=== PATIENT | female | born 1965 | race Caucasian/White ===

== ENCOUNTER 2017-05-22 03:25 | Inpatient (IN) | payer MEDICAID ==
[~2017-05-22] VITALS: Ht 167.6 cm; Wt 72.3 kg
[~2017-05-22 03:25] MED LIST: CEPH500C5 PO; CYCL-1 PO; HYDR-565 PO; HYDR-569 PO; NAPR-1144 PO; NAPR-1166 PO
[2017-05-22] MEDS ORDERED: ondansetron/PF 4mg/2ml inj IV ONE (03:50)
[2017-05-22] MEDS ORDERED: normal saline 1000ML IV soln IVB ONE ×2 (03:50→04:50)
[2017-05-22] MEDS ORDERED: famotidine/PF 10 mg/ml inj IV ONE (03:50)
[2017-05-22] MEDS ORDERED: LORazepam 2 mg/ml vial IV ONE (04:10)
[2017-05-22 04:26] LABS: BASOPHILS % (AUTO) 0 % (0-1); EOSINOPHILS % (AUTO) 0.5 % (0-6); HEMATOCRIT 46.2 % (35.0-45.0); HEMOGLOBIN 15.8 g/dl (12.0-16.0); LYMPHOCYTES # (AUTO) 0.4 X10'3 (1.1-4.8); LYMPHOCYTES % (AUTO) 6.8 % (21-51); MEAN CORPUSCULAR HEMOGLOBIN 31.9 PG (27.0-31.0); MEAN CORPUSCULAR HGB CONC 34.1 % (33.0-36.5); MEAN CORPUSCULAR VOLUME 93.6 FL (78-98); MEAN PLATELET VOLUME 7.5 FL (7.4-10.4); MONOCYTES # (AUTO) 0.1 X10'3 (0-0.9); MONOCYTES % (AUTO) 2.6 % (2-12); NEUTROPHILS % (AUTO) 90.1 % (42-75); PLATELET COUNT 310 X10'3 (140-440); RED BLOOD COUNT 4.94 X10'6 (4.20-5.60); RED CELL DISTRIBUTION WIDTH 14.3 % (11.5-14.5); WHITE BLOOD COUNT 5.5 X10'3 (4.5-11.0)
[2017-05-22 04:39] LABS: ALANINE AMINOTRANSFERASE 87 U/L (12-78); ALBUMIN 3.6 G/DL (3.4-5.0); ALBUMIN/GLOBULIN RATIO 0.7 (1.1-1.5); ALKALINE PHOSPHATASE 147 IU/L (46-116); ANION GAP 20 (8-16); ASPARTATE AMINO TRANSFERASE 77 U/L (10-37); BILIRUBIN,TOTAL 0.6 MG/DL (0.1-1.0); BLOOD UREA NITROGEN 16 MG/DL (7-18); BUN/CREATININE RATIO 20.8 (6.6-38.0); CALCIUM 8.8 MG/DL (8.5-10.1); CHLORIDE 103 MMOL/L (99-107); CREATININE 0.77 MG/DL (0.40-0.90); ETHANOL 0.121 GM/DL (0.0-0.010); GLUCOSE 146 MG/DL (70-104); LIPASE 164 U/L (73-393); POTASSIUM 3.2 MMOL/L (3.5-5.1); SODIUM 143 MMOL/L (135-145); TOTAL CARBON DIOXIDE 20.3 MMOL/L (24-32); TOTAL PROTEIN 8.8 G/DL (6.4-8.2); eGFR 79 ML/MIN
[2017-05-22] MEDS ORDERED: acetaminophen 325mg tablet PO ONE (05:20)
[2017-05-22] MEDS ORDERED: normal saline 1000ml 1,000 ML IV ONE (07:00)
[2017-05-22] MEDS ORDERED: morphine 4 MG/ML inj SYRINge IV ONE (07:00)
[2017-05-22 07:16] LABS: URINE HCG NEGATIVE (NEG)
[2017-05-22 07:17] LABS: CLARITY,URINE CLEAR (Clear); COLOR,URINE YELLOW (Yellow); GLUCOSE, URINE NEGATIVE (Neg); KETONES,URINE >=80 mg/dl (Neg); LEUKOCYTE ESTERASE ,URINE NEGATIVE (Neg); NITRITES, URINE NEGATIVE (Neg); OCCULT BLOOD,URINE NEGATIVE (Neg); PH,URINE 5.5 (4.8-8.0); PROTEIN,URINE NEGATIVE (Neg)
[2017-05-22 07:18] LABS: UA COLLECTION TYPE CLN CATCH MIDSTREAM
[2017-05-22] MEDS ORDERED: morphine 4 MG/ML inj SYRINge IV PRN (08:55)
[2017-05-22] MEDS ORDERED: acetaminophen 325mg tablet PO PRN (08:55)
[2017-05-22] MEDS ORDERED: bisacodyl 10mg suppository rectal RC PRN (08:55)
[2017-05-22] MEDS ORDERED: magnesium 4gm in 100ml NS 100 ML IV PRN (08:55)
[2017-05-22] MEDS ORDERED: HYDROcodone/acetaminophen 5mg/325mg tablet PO PRN (08:55)
[2017-05-22] MEDS ORDERED: magnesium 2GM in 50ml NS 50 ML IV PRN (08:55)
[2017-05-22] MEDS ORDERED: metoclopramide 5 mg/ml inj IV PRN (08:55)
[2017-05-22] MEDS ORDERED: potassium Cl 20 mEq SR tablet PO PRN (08:55)
[2017-05-22] MEDS ORDERED: potassium Cl 40MEQ/NS 500ml 500 ML IV PRN ×2 (08:55)
[2017-05-22] MEDS ORDERED: mag hydrox/Alum hydrox/simeth 30ml oral suspension PO PRN (08:55)
[2017-05-22] MEDS ORDERED: magnesium hydroxide 30ml (MOM) UD suspension PO PRN (08:55)
[2017-05-22] MEDS ORDERED: normal saline 1000ml 1,000 ML IV SCH (08:55)
[2017-05-22] MEDS: thiamine inj. 100 MG in normal saline 100ml IV soln 100 ML IV ONE ×2 (09:55→12:15)
[2017-05-22] MEDS ORDERED: pantoprazole 40 MG vial IV ONE (09:55)
[2017-05-22] MEDS ORDERED: loperamide 2mg capsule PO ONE (09:55)
[2017-05-22] MEDS ORDERED: haloperidol 5mg tablet PO PRN ×2 (09:55)
[2017-05-22] MEDS ORDERED: cloNIDine 0.1 MG/24 HOUR patch (7 day patch) TD SCH (09:55)
[2017-05-22] MEDS ORDERED: LORazepam 2 mg/ml vial IV PRN ×3 (09:55)
[2017-05-22] MEDS ORDERED: haloperidol lactate 5mg/ml inj IM PRN ×3 (09:55)
[2017-05-22] MEDS: pantoprazole 40 MG vial IV SCH (10:30)
[2017-05-22] MEDS: potassium Cl 20 mEq SR tablet PO PRN ×2 (10:37→20:14)
[2017-05-22] MEDS: ondansetron/PF 4mg/2ml inj IV PRN (10:39)
[2017-05-22] MEDS: LORazepam 2 mg/ml vial IV PRN ×2 (10:45→21:57)
[2017-05-22 10:46] LABS: URINE AMPHETAMINE SCREEN POSITIVE (Neg); URINE BARBITUATE SCREEN NEGATIVE (Neg); URINE BENZODIAZEPINES SCREEN POSITIVE (Neg); URINE CANNABINOID SCREEN POSITIVE (Neg); URINE COCAINE SCREEN NEGATIVE (Neg); URINE METHADONE SCREEN NEGATIVE (Neg); URINE OPIATE SCREEN NEGATIVE (Neg); URINE PHENCYCLIDINE SCREEN NEGATIVE (Neg)
[2017-05-22 10:47] LABS: AMYLASE 61 U/L (25-115); CHOL/HDL RATIO 3.1 (0.00-4.99); CHOLESTEROL 210 MG/DL (0-200); HDL CHOLESTEROL 68 MG/DL (35-60); LDL CHOLESTEROL 114 MG/DL (50-100); TRIGLYCERIDES 105 MG/DL (20-135)
[2017-05-22 12:12] LABS: MAGNESIUM 1.4 MG/DL (1.5-2.4); PHOSPHORUS 3.2 MG/DL (2.3-4.5)
[2017-05-22] MEDS: nicotine 14mg patch - 24hr TD SCH (12:14)
[2017-05-22] MEDS: morphine 4 MG/ML inj SYRINge IV PRN (12:19)
[2017-05-22] MEDS: normal saline 1000ml 1,000 ML IV SCH ×3 (12:31→21:05)
[2017-05-22] MEDS: folic acid inj. 2 MG, thiamine inj. 100 MG, MVI, adult No.4 with vit. K 10 ML in dextro... IV SCH ×4 (13:22)
[2017-05-22 17:00] VITALS: BP 143/53
[2017-05-22 18:00] VITALS: BP 147/92
[2017-05-22] MEDS: HYDROcodone/acetaminophen 10/325mg tab PO PRN (18:06)
[2017-05-22] MEDS: magnesium Cl slow-release 64mg tablet PO PRN (20:14)
[2017-05-22] MEDS: docusate sod 100mg capsule PO SCH (20:16)
[2017-05-22] MEDS: heparin, porcine 5000 units/ml vial SQ SCH (20:16)
[2017-05-22] MEDS ORDERED: temazepam 15mg capsule PO PRN (21:00)
[2017-05-23] VITALS: BP 162/88
[2017-05-23] MEDS: normal saline 1000ml 1,000 ML IV SCH ×2 (03:02→21:00)
[2017-05-23 05:06] LABS: BASOPHILS % (AUTO) 0.3 % (0-1); EOSINOPHILS % (AUTO) 0.3 % (0-6); HEMATOCRIT 37.1 % (35.0-45.0); HEMOGLOBIN 12.6 g/dl (12.0-16.0); LYMPHOCYTES % (AUTO) 15.7 % (21-51); MEAN CORPUSCULAR HEMOGLOBIN 31.8 PG (27.0-31.0); MEAN CORPUSCULAR VOLUME 93.5 FL (78-98); MEAN PLATELET VOLUME 7.7 FL (7.4-10.4); MONOCYTES # (AUTO) 0.3 X10'3 (0-0.9); MONOCYTES % (AUTO) 5.2 % (2-12); NEUTROPHILS # (AUTO) 4.9 X10'3 (1.8-7.7); NEUTROPHILS % (AUTO) 78.5 % (42-75); PLATELET COUNT 220 X10'3 (140-440); RED BLOOD COUNT 3.96 X10'6 (4.20-5.60); RED CELL DISTRIBUTION WIDTH 14.6 % (11.5-14.5); WHITE BLOOD COUNT 6.3 X10'3 (4.5-11.0)
[2017-05-23 05:15] LABS: INR 1.1 INR; PROTHROMBIN TIME 11.2 SECONDS (9.0-12.0)
[2017-05-23 05:27] LABS: ALANINE AMINOTRANSFERASE 56 U/L (12-78); ALBUMIN 2.6 G/DL (3.4-5.0); ALBUMIN/GLOBULIN RATIO 0.7 (1.1-1.5); ALKALINE PHOSPHATASE 93 IU/L (46-116); AMYLASE 35 U/L (25-115); ANION GAP 9 (8-16); ASPARTATE AMINO TRANSFERASE 42 U/L (10-37); BILIRUBIN,TOTAL 0.3 MG/DL (0.1-1.0); BLOOD UREA NITROGEN 6 MG/DL (7-18); BUN/CREATININE RATIO 8.8 (6.6-38.0); CALCIUM 7.4 MG/DL (8.5-10.1); CHLORIDE 106 MMOL/L (99-107); CREATININE 0.68 MG/DL (0.40-0.90); GLUCOSE 107 MG/DL (70-104); LIPASE 56 U/L (73-393); MAGNESIUM 1.1 MG/DL (1.5-2.4); PHOSPHORUS 2.1 MG/DL (2.3-4.5); POTASSIUM 3.2 MMOL/L (3.5-5.1); SODIUM 139 MMOL/L (135-145); TOTAL CARBON DIOXIDE 24.5 MMOL/L (24-32); TOTAL PROTEIN 6.3 G/DL (6.4-8.2); eGFR > 90 ML/MIN
[2017-05-23] MEDS: magnesium Cl slow-release 64mg tablet PO PRN ×2 (05:57→21:06)
[2017-05-23] MEDS: potassium Cl 20 mEq SR tablet PO PRN ×3 (05:57→21:05)
[2017-05-23 06:54] VITALS: BP 123/71
[2017-05-23 07:16] LABS: HEP A AB, IGM Negative (Negative); HEP B CORE AB, IGM Negative (Negative); HEPATITIS C ANTIBODY >11.0 s/co ratio (0.0-0.9)
[2017-05-23] MEDS: morphine 4 MG/ML inj SYRINge IV PRN ×2 (07:58→20:15)
[2017-05-23] MEDS: heparin, porcine 5000 units/ml vial SQ SCH ×2 (07:58→19:54)
[2017-05-23] MEDS: nicotine 14mg patch - 24hr TD SCH ×2 (08:00→08:09)
[2017-05-23] MEDS: K and/or MAG REPLACEMENT MC SCH (08:00)
[2017-05-23] MEDS: folic acid inj. 2 MG, thiamine inj. 100 MG, MVI, adult No.4 with vit. K 10 ML in dextro... IV SCH ×4 (08:04)
[2017-05-23] MEDS: docusate sod 100mg capsule PO SCH ×2 (08:06→20:00)
[2017-05-23 11:00] VITALS: BP 104/61
[2017-05-23] MEDS: pantoprazole 40 MG vial IV SCH (11:03)
[2017-05-23] MEDS: LORazepam 2 mg/ml vial IV PRN ×2 (11:03→23:39)
[2017-05-23 19:00] VITALS: BP 126/81
[2017-05-23] MEDS: ondansetron/PF 4mg/2ml inj IV PRN (20:16)
[2017-05-24] VITALS: BP 114/67
[2017-05-24 05:04] LABS: BASOPHILS % (AUTO) 0.5 % (0-1); EOSINOPHILS # (AUTO) 0.1 X10'3 (0-0.9); EOSINOPHILS % (AUTO) 3.5 % (0-6); HEMATOCRIT 35.3 % (35.0-45.0); LYMPHOCYTES # (AUTO) 1.1 X10'3 (1.1-4.8); LYMPHOCYTES % (AUTO) 30.6 % (21-51); MEAN CORPUSCULAR HEMOGLOBIN 31.8 PG (27.0-31.0); MEAN CORPUSCULAR HGB CONC 33.9 % (33.0-36.5); MEAN CORPUSCULAR VOLUME 93.7 FL (78-98); MEAN PLATELET VOLUME 8.5 FL (7.4-10.4); MONOCYTES # (AUTO) 0.3 X10'3 (0-0.9); MONOCYTES % (AUTO) 8.1 % (2-12); NEUTROPHILS # (AUTO) 2.1 X10'3 (1.8-7.7); NEUTROPHILS % (AUTO) 57.3 % (42-75); PLATELET COUNT 214 X10'3 (140-440); RED BLOOD COUNT 3.76 X10'6 (4.20-5.60); RED CELL DISTRIBUTION WIDTH 14.5 % (11.5-14.5); WHITE BLOOD COUNT 3.7 X10'3 (4.5-11.0)
[2017-05-24 05:16] LABS: PROTHROMBIN TIME 10.6 SECONDS (9.0-12.0)
[2017-05-24 05:22] LABS: ALANINE AMINOTRANSFERASE 45 U/L (12-78); ALBUMIN 2.4 G/DL (3.4-5.0); ALBUMIN/GLOBULIN RATIO 0.7 (1.1-1.5); ALKALINE PHOSPHATASE 87 IU/L (46-116); AMYLASE 37 U/L (25-115); ANION GAP 7 (8-16); ASPARTATE AMINO TRANSFERASE 36 U/L (10-37); BILIRUBIN,TOTAL 0.3 MG/DL (0.1-1.0); BLOOD UREA NITROGEN 4 MG/DL (7-18); CALCIUM 7.7 MG/DL (8.5-10.1); CHLORIDE 107 MMOL/L (99-107); CREATININE 0.57 MG/DL (0.40-0.90); GLUCOSE 114 MG/DL (70-104); LIPASE 79 U/L (73-393); MAGNESIUM 1.3 MG/DL (1.5-2.4); PHOSPHORUS 2.4 MG/DL (2.3-4.5); POTASSIUM 3.2 MMOL/L (3.5-5.1); SODIUM 140 MMOL/L (135-145); TOTAL CARBON DIOXIDE 26.1 MMOL/L (24-32); eGFR > 90 ML/MIN
[2017-05-24 07:30] VITALS: BP 119/68
[2017-05-24] MEDS: nicotine 14mg patch - 24hr TD SCH (08:00)
[2017-05-24] MEDS: K and/or MAG REPLACEMENT MC SCH (08:00)
[2017-05-24] MEDS: docusate sod 100mg capsule PO SCH (08:00)
[2017-05-24] MEDS: pantoprazole 40 MG vial IV SCH ×2 (09:52→10:07)
[2017-05-24] MEDS: folic acid inj. 2 MG, thiamine inj. 100 MG, MVI, adult No.4 with vit. K 10 ML in dextro... IV SCH ×4 (09:53)
[2017-05-24] MEDS ORDERED: LORazepam 1 MG tablet PO PRN (09:55)
[2017-05-24] MEDS ORDERED: LORazepam 2 mg/ml vial IV PRN (09:55)
[2017-05-24] MEDS: heparin, porcine 5000 units/ml vial SQ SCH (10:08)
[2017-05-24 11:00] VITALS: BP 134/67
[2017-05-24] MEDS ORDERED: THI100T PO (12:01)
[2017-05-24] MEDS ORDERED: MULT-1179 PO (12:01)
[2017-05-24] MEDS ORDERED: FOLI1TAB16 PO (12:01)
[2017-05-24] MEDS: HYDROcodone/acetaminophen 10/325mg tab PO PRN (15:05)
[2017-05-25] MEDS ORDERED: multivitamins, therapeutics tablet PO SCH (08:00)
[2017-05-25] MEDS ORDERED: thiamine 100mg tablet PO SCH (08:00)
[2017-05-25] MEDS ORDERED: folic acid 1mg tablet PO SCH (08:00)
[2017-05-26] MEDS ORDERED: LORazepam 1 MG tablet PO PRN (09:55)
[2017-05-26] MEDS ORDERED: LORazepam 2 mg/ml vial IV PRN (09:55)
== END 2017-05-24 19:07 | disposition home or self-care (01) | DRG 775 ==
LOC: ER 03:26 → ED HOLD 08:55 → SUR 3N 16:17
PROVIDERS: ADMIT Nurse Practitioner Family; ATTEND Internal Medicine
DX: F10.129 Alcohol abuse with intoxication, unspecified (principal); E87.2 Acidosis; F15.10 Other stimulant abuse, uncomplicated; F17.210 Nicotine dependence, cigarettes, uncomplicated; F41.9 Anxiety disorder, unspecified; K20.9 Esophagitis, unspecified; E87.6 Hypokalemia; Y90.0 Blood alcohol level of less than 20 mg/100 ml; K31.84 Gastroparesis; B19.20 Unspecified viral hepatitis C without hepatic coma; G89.29 Other chronic pain; M54.9 Dorsalgia, unspecified; R74.0 Nonspecific elevation of levels of transaminase and lactic acid dehydrogenase [LDH]; R74.8 Abnormal levels of other serum enzymes; Z87.440 Personal history of urinary (tract) infections; Z79.899 Other long term (current) drug therapy
CPT/HCPCS: 36415; 70540; 70551; 74176; 76700; 80053; 80061; 80305; 80320; 81003; 81025; 82150; 82948; 83605; 83690; 83735; 84100; 84132; 85025; 85610; 86705; 86709; 86803; 87070; 96361; 96374; 96375; 97116; 97161; 99285; A4565; A6258; C9113; J1644; J2060; J2270; J2405; J3411; J3490; J7030; J7042; J7060

== ENCOUNTER 2017-11-04 12:57 | Emergency (ER) | payer MEDICAID ==
[~2017-11-04] VITALS: Ht 167.6 cm; Wt 72.0 kg
[~2017-11-04 12:57] MED LIST changes: -CEPH500C5 PO; +FOLI1TAB16 PO; +MULT-1179 PO; +THI100T PO
[2017-11-04 13:37] VITALS: BP 140/77
[2017-11-04] MEDS ORDERED: ketorolac trometh. 30mg/ml inj. IM ONE (14:50)
[2017-11-04] MEDS ORDERED: CYCL-1 PO (15:46)
== END 2017-11-04 16:02 | disposition home or self-care (01) ==
LOC: ER 12:58
DX: S20.219A Contusion of unspecified front wall of thorax, initial encounter (principal); G89.29 Other chronic pain; F17.200 Nicotine dependence, unspecified, uncomplicated; Z79.899 Other long term (current) drug therapy; Z56.0 Unemployment, unspecified; W17.89XA Other fall from one level to another, initial encounter; Y93.39 Activity, other involving climbing, rappelling and jumping off; Y92.89 Other specified places as the place of occurrence of the external cause; Y99.8 Other external cause status
CPT/HCPCS: 71045; 96372; 99284; J1885

== ENCOUNTER 2018-02-08 22:56 | Emergency (ER) | payer MEDICAID ==
[~2018-02-08] VITALS: Ht 167.6 cm; Wt 65.0 kg
[~2018-02-08 22:56] MED LIST changes: +HYDR-4353 PO; +HYDR-4383 PO; -HYDR-565 PO; -HYDR-569 PO
[2018-02-08 23:13] VITALS: BP 158/100
[2018-02-09] MEDS ORDERED: acetaminophen 325mg tablet PO ONE (03:50)
[2018-02-09] MEDS ORDERED: ONDA4TAB6 PO ×2 (03:51→03:52)
[2018-02-09] MEDS ORDERED: HYDR-3965 PO (03:52)
== END 2018-02-09 05:54 | disposition home or self-care (01) ==
LOC: ER 22:56
DX: S43.101A Unspecified dislocation of right acromioclavicular joint, initial encounter (principal); S46.091A Other injury of muscle(s) and tendon(s) of the rotator cuff of right shoulder, initial encounter; B19.20 Unspecified viral hepatitis C without hepatic coma; G89.29 Other chronic pain; E11.9 Type 2 diabetes mellitus without complications; F17.200 Nicotine dependence, unspecified, uncomplicated; Z98.890 Other specified postprocedural states; Z56.0 Unemployment, unspecified; Z79.899 Other long term (current) drug therapy; W10.8XXA Fall (on) (from) other stairs and steps, initial encounter; Y93.89 Activity, other specified; Y92.89 Other specified places as the place of occurrence of the external cause; Y99.8 Other external cause status
CPT/HCPCS: 29105; 73030; 99283

== ENCOUNTER 2018-02-15 19:10 | Emergency (ER) | payer MEDICAID ==
[~2018-02-15] VITALS: Ht 167.6 cm; Wt 69.9 kg
[~2018-02-15 19:10] MED LIST changes: +HYDR-3965 PO; +ONDA4TAB6 PO
[2018-02-15 19:32] VITALS: BP 165/95
[2018-02-16] MEDS ORDERED: ketorolac trometh. 30mg/ml inj. IM ONE (00:20)
[2018-02-16] MEDS ORDERED: IBUP-1985 PO (00:21)
== END 2018-02-16 00:32 | disposition home or self-care (01) ==
LOC: ER 19:11
DX: S43.101A Unspecified dislocation of right acromioclavicular joint, initial encounter (principal); G89.29 Other chronic pain; F17.200 Nicotine dependence, unspecified, uncomplicated; Z56.0 Unemployment, unspecified; Z98.890 Other specified postprocedural states; Z79.899 Other long term (current) drug therapy; W10.9XXA Fall (on) (from) unspecified stairs and steps, initial encounter; Y93.89 Activity, other specified; Y92.89 Other specified places as the place of occurrence of the external cause; Y99.9 Unspecified external cause status
CPT/HCPCS: 96372; 99283; J1885

== ENCOUNTER 2018-04-26 05:11 | Emergency (ER) | payer MEDICAID ==
[~2018-04-26] VITALS: Ht 167.6 cm; Wt 58.0 kg
[~2018-04-26 05:11] MED LIST changes: -HYDR-3965 PO; +IBUP-1985 PO
[2018-04-26] MEDS ORDERED: BENZ-16 PO (07:49)
[2018-04-26] MEDS ORDERED: SULF5DRO EACHEYE (07:49)
[2018-04-26 08:11] VITALS: BP 134/48
== END 2018-04-26 08:13 | disposition home or self-care (01) ==
LOC: ER 05:14
DX: J06.9 Acute upper respiratory infection, unspecified (principal); H10.9 Unspecified conjunctivitis; J02.9 Acute pharyngitis, unspecified; F17.200 Nicotine dependence, unspecified, uncomplicated; Z56.0 Unemployment, unspecified; Z72.89 Other problems related to lifestyle
CPT/HCPCS: 99283

== ENCOUNTER 2018-05-10 23:53 | Emergency (ER) | payer MEDICAID ==
[~2018-05-10] VITALS: Ht 167.6 cm; Wt 63.6 kg
[~2018-05-10 23:53] MED LIST changes: +BENZ-16 PO; +SULF5DRO EACHEYE
[2018-05-11] VITALS: BP 146/118
[2018-05-11] MEDS ORDERED: FLUT16SP2 BOTHNARES (00:18)
[2018-05-11] MEDS ORDERED: AZIT250T PO (00:21)
== END 2018-05-11 00:30 | disposition home or self-care (01) ==
LOC: ER 23:53
DX: J02.9 Acute pharyngitis, unspecified (principal); G89.29 Other chronic pain; F17.200 Nicotine dependence, unspecified, uncomplicated; Z98.890 Other specified postprocedural states; Z79.899 Other long term (current) drug therapy; Z56.0 Unemployment, unspecified
CPT/HCPCS: 99283

== ENCOUNTER 2018-05-27 21:00 | Emergency (ER) | payer MEDICAID ==
[~2018-05-27 21:00] MED LIST changes: +FLUT16SP2 BOTHNARES
[2018-05-28] MEDS ORDERED: PERM60CR19 TP (06:18)
== END 2018-05-27 21:45 | disposition left against medical advice (07) ==
LOC: ER 21:01
DX: R51 Headache (principal); Z53.21 Procedure and treatment not carried out due to patient leaving prior to being seen by health care provider

== ENCOUNTER 2018-05-28 04:41 | Emergency (ER) | payer MEDICAID ==
[~2018-05-28] VITALS: Ht 167.6 cm; Wt 60.4 kg
[2018-05-28 05:24] VITALS: BP 151/84
[2018-05-28] MEDS ORDERED: PERM60CR19 TP (06:18)
[2018-05-28] MEDS ORDERED: ibuprofen tablet 400 MG TABLET PO ONE (06:20)
== END 2018-05-28 06:45 | disposition home or self-care (01) ==
LOC: ER 04:42
DX: B85.0 Pediculosis due to Pediculus humanus capitis (principal); R21 Rash and other nonspecific skin eruption; F17.200 Nicotine dependence, unspecified, uncomplicated; G89.29 Other chronic pain; E11.9 Type 2 diabetes mellitus without complications; B19.20 Unspecified viral hepatitis C without hepatic coma; Z56.0 Unemployment, unspecified; Z98.890 Other specified postprocedural states; Z79.899 Other long term (current) drug therapy
CPT/HCPCS: 99282

== ENCOUNTER 2018-07-11 21:22 | Emergency (ER) | payer MEDICAID ==
[~2018-07-11 21:22] MED LIST changes: -BENZ-16 PO
== END 2018-07-11 21:55 | disposition left against medical advice (07) ==
LOC: ER 21:22
DX: R51 Headache (principal); Z53.21 Procedure and treatment not carried out due to patient leaving prior to being seen by health care provider

== ENCOUNTER 2018-07-17 12:16 | Emergency (ER) | payer MEDICAID ==
[~2018-07-17] VITALS: Ht 167.6 cm; Wt 60.9 kg
[2018-07-17 12:18] VITALS: BP 123/93
--- NOTE | 2018-07-17 12:46 | NUR ---
PT WAS CALLED BACK TO ER X3, PT WAS NOT IN LOBBY. NOTIFIED DR CLAUDIO, ATTEMPTED TO CALL PT BUT THERE WAS NO LISTED PHONE# OTHER THAN EMERGENCY CONTACT #. DR CLAUDIO NOTIFIED. NO FURTHER ACTION REQUIRED PER DR CLAUDIO
== END 2018-07-17 12:48 | disposition left against medical advice (07) ==
LOC: ER 12:17
DX: F41.9 Anxiety disorder, unspecified (principal); Z53.21 Procedure and treatment not carried out due to patient leaving prior to being seen by health care provider; Z79.899 Other long term (current) drug therapy

== ENCOUNTER 2018-09-09 18:15 | Inpatient (IN) | payer MEDICAID ==
[~2018-09-09] VITALS: Ht 167.6 cm; Wt 61.8 kg
[2018-09-09] MEDS ORDERED: ESOMEPRAZOLE 40 MG VIAL IV STA (20:18)
[2018-09-09] MEDS ORDERED: famotidine/PF 10 mg/ml inj IV ONE (20:20)
[2018-09-09] MEDS ORDERED: normal saline 1000ML IV soln IVB ONE (20:20)
[2018-09-09] MEDS ORDERED: ondansetron/PF 4mg/2ml inj IV ONE (20:20)
[2018-09-09 20:30] LABS: BASOPHILS # (AUTO) 0.1 X10'3 (0-0.2); BASOPHILS % (AUTO) 1.4 % (0-1); EOSINOPHILS # (AUTO) 0.2 X10'3 (0-0.9); EOSINOPHILS % (AUTO) 2.8 % (0-6); HEMATOCRIT 45.8 % (35.0-45.0); HEMOGLOBIN 15.6 g/dl (12.0-16.0); LYMPHOCYTES % (AUTO) 30.6 % (21-51); MEAN CORPUSCULAR HEMOGLOBIN 34.3 PG (27.0-31.0); MEAN CORPUSCULAR VOLUME 101.1 FL (78-98); MEAN PLATELET VOLUME 8.2 FL (7.4-10.4); MONOCYTES # (AUTO) 1.2 X10'3 (0-0.9); MONOCYTES % (AUTO) 18.6 % (2-12); NEUTROPHILS # (AUTO) 3.1 X10'3 (1.8-7.7); NEUTROPHILS % (AUTO) 46.6 % (42-75); PLATELET COUNT 432 X10'3 (140-440); RED BLOOD COUNT 4.53 X10'6 (4.20-5.60); RED CELL DISTRIBUTION WIDTH 15.3 % (11.5-14.5); WHITE BLOOD COUNT 6.6 X10'3 (4.5-11.0)
[2018-09-09 20:40] LABS: ALBUMIN 3.5 G/DL (3.4-5.0); ALBUMIN/GLOBULIN RATIO 0.6 (1.1-1.5); ALKALINE PHOSPHATASE 222 IU/L (46-116); ANION GAP 9 (8-16); ASPARTATE AMINO TRANSFERASE 913 U/L (10-37); BILIRUBIN,TOTAL 0.9 MG/DL (0.1-1.0); BLOOD UREA NITROGEN 10 MG/DL (7-18); BUN/CREATININE RATIO 11.8 (6.6-38.0); CALCIUM 8.8 MG/DL (8.5-10.1); CHLORIDE 99 MMOL/L (99-107); CREATININE 0.85 MG/DL (0.40-0.90); SODIUM 137 MMOL/L (135-145); TOTAL CARBON DIOXIDE 29.1 MMOL/L (24-32); TOTAL PROTEIN 8.9 G/DL (6.4-8.2); eGFR 70 ML/MIN
[2018-09-09 20:44] LABS: GLUCOSE 170 MG/DL (70-104)
[2018-09-09] MEDS ORDERED: magnesium 2GM in 50ml NS 50 ML IV ONE (20:45)
[2018-09-09] MEDS ORDERED: potassium Cl 20 mEq SR tablet PO ONE (20:45)
[2018-09-09 20:46] LABS: POTASSIUM 2.5 MMOL/L (3.5-5.1)
[2018-09-09] MEDS ORDERED: proCHLORperazine 10 MG/2 ml inj IV ONE (20:55)
[2018-09-09] MEDS ORDERED: thiamine 100mg/ml 2ml inj. IV ONE ×2 (20:55→23:55)
[2018-09-09] MEDS ORDERED: sucralfate 1gm/10ml UD suspension PO ONE (20:55)
[2018-09-09] MEDS ORDERED: LORazepam 2 mg/ml vial IV ONE (20:55)
[2018-09-09] MEDS: potassium Cl 10 mEq/100mL bag IV SCH ×2 (21:05→22:13)
[2018-09-09 21:40] LABS: TOTAL CELLS COUNTED 100
[2018-09-09 21:44] LABS: ALANINE AMINOTRANSFERASE 1018 U/L (12-78)
[2018-09-09 21:49] LABS: PLATELET ESTIMATE NORMAL
[2018-09-09] MEDS ORDERED: normal saline 1000ml 1,000 ML IV ONE (22:00)
[2018-09-09] MEDS ORDERED: iohexol 300mg/ml 100ml inj. ONE (22:59)
[2018-09-09 23:18] LABS: LIPASE 334 U/L (73-393)
[2018-09-09] MEDS ORDERED: magnesium 2GM in 50ml NS 50 ML IV PRN (23:35)
[2018-09-09] MEDS ORDERED: magnesium hydroxide 30ml (MOM) UD suspension PO PRN (23:35)
[2018-09-09] MEDS ORDERED: haloperidol lactate 5mg/ml inj IM PRN (23:35)
[2018-09-09] MEDS ORDERED: thiamine inj. 100 MG in normal saline 100ml IV soln 100 ML IV ONE (23:35)
[2018-09-09] MEDS ORDERED: haloperidol 5mg tablet PO PRN (23:35)
[2018-09-09] MEDS ORDERED: acetaminophen 325mg tablet PO PRN (23:35)
[2018-09-09] MEDS ORDERED: potassium Cl 20 mEq SR tablet PO PRN ×2 (23:35)
[2018-09-09] MEDS ORDERED: magnesium 4gm in 100ml NS 100 ML IV PRN (23:35)
[2018-09-09] MEDS ORDERED: potassium CL 10mEq/100ml bag 100 ML IV PRN (23:35)
[2018-09-09 23:47] LABS: ETHANOL 0.224 GM/DL (0.0-0.010)
[2018-09-09] MEDS: potassium Cl 20mEq in NS 1,000 ML IV SCH (23:56)
[2018-09-10 02:30] VITALS: BP 125/69
[2018-09-10 02:49] LABS: URINE AMPHETAMINE SCREEN NEGATIVE (Neg); URINE BARBITUATE SCREEN NEGATIVE (Neg); URINE BENZODIAZEPINES SCREEN NEGATIVE (Neg); URINE CANNABINOID SCREEN NEGATIVE (Neg); URINE COCAINE SCREEN NEGATIVE (Neg); URINE METHADONE SCREEN NEGATIVE (Neg); URINE OPIATE SCREEN NEGATIVE (Neg); URINE PHENCYCLIDINE SCREEN NEGATIVE (Neg)
[2018-09-10] MEDS: LORazepam 2 mg/ml vial IV PRN (03:04)
[2018-09-10] MEDS: potassium CL 10mEq/100ml bag 100 ML IV PRN ×3 (03:05→06:23)
[2018-09-10 05:52] LABS: BASOPHILS # (AUTO) 0.1 X10'3 (0-0.2); BASOPHILS % (AUTO) 1.3 % (0-1); EOSINOPHILS # (AUTO) 0.2 X10'3 (0-0.9); EOSINOPHILS % (AUTO) 3.6 % (0-6); HEMATOCRIT 37.6 % (35.0-45.0); HEMOGLOBIN 12.6 g/dl (12.0-16.0); LYMPHOCYTES # (AUTO) 1.2 X10'3 (1.1-4.8); LYMPHOCYTES % (AUTO) 21.6 % (21-51); MEAN CORPUSCULAR HEMOGLOBIN 34.1 PG (27.0-31.0); MEAN CORPUSCULAR HGB CONC 33.6 g/dL (33.0-36.5); MEAN CORPUSCULAR VOLUME 101.6 FL (78-98); MONOCYTES % (AUTO) 17.9 % (2-12); NEUTROPHILS # (AUTO) 3.1 X10'3 (1.8-7.7); NEUTROPHILS % (AUTO) 55.6 % (42-75); PLATELET COUNT 320 X10'3 (140-440); RED CELL DISTRIBUTION WIDTH 15.2 % (11.5-14.5); WHITE BLOOD COUNT 5.5 X10'3 (4.5-11.0)
--- NOTE | 2018-09-10 06:20 | NUR ---
Problems reprioritized. Patient report given, questions answered & plan of care reviewed with Clarisse MACHUCA.
--- NOTE | 2018-09-10 06:41 | NUR ---
Patient in room [facility]. I have received report from BRIGETTE Kathleen and had the opportunity to ask questions and assume patient care.
[2018-09-10 07:00] VITALS: BP 116/70
[2018-09-10] MEDS: thiamine inj. 100 MG, folic acid inj. 2 MG in normal saline 100ml IV soln 100.0 ML IV SCH (07:26)
[2018-09-10 07:31] LABS: PLATELET ESTIMATE NORMAL; TOTAL CELLS COUNTED 100
[2018-09-10] MEDS: ESOMEPRAZOLE 40 MG VIAL IV SCH ×2 (07:36→20:18)
[2018-09-10] MEDS: MVI, adult No.4 with vit. K 10 ML in dextrose 5% water 500ml 500 ML IV SCH ×2 (07:41)
[2018-09-10] MEDS: K and/or MAG REPLACEMENT MC SCH (07:41)
[2018-09-10] MEDS ORDERED: enoxaparin 40mg/0.4ml syringe SQ SCH (08:00)
[2018-09-10] MEDS: potassium Cl 20mEq in NS 1,000 ML IV SCH ×3 (10:36→22:10)
[2018-09-10 11:00] VITALS: BP 128/81
[2018-09-10 11:06] LABS: HIV ANTIBODY 1&2 RAPID NON-REACTIVE (Neg)
[2018-09-10 11:32] LABS: ALANINE AMINOTRANSFERASE 708 U/L (12-78); ALBUMIN 2.4 G/DL (3.4-5.0); ALBUMIN/GLOBULIN RATIO 0.6 (1.1-1.5); ALKALINE PHOSPHATASE 187 IU/L (46-116); ANION GAP 5 (8-16); ASPARTATE AMINO TRANSFERASE 662 U/L (10-37); BILIRUBIN,TOTAL 1.8 MG/DL (0.1-1.0); BLOOD UREA NITROGEN 7 MG/DL (7-18); BUN/CREATININE RATIO 11.5 (6.6-38.0); CALCIUM 7.2 MG/DL (8.5-10.1); CHLORIDE 110 MMOL/L (99-107); CREATININE 0.61 MG/DL (0.40-0.90); MAGNESIUM 1.7 MG/DL (1.5-2.4); PHOSPHORUS 2.6 MG/DL (2.3-4.5); POTASSIUM 3.8 MMOL/L (3.5-5.1); SODIUM 142 MMOL/L (135-145); TOTAL CARBON DIOXIDE 27.2 MMOL/L (24-32); TOTAL PROTEIN 6.2 G/DL (6.4-8.2); eGFR > 90 ML/MIN
--- NOTE | 2018-09-10 11:46 | NUR ---
Malnutrition consult: Per documented wt history pt has lost 36 lbs since May 2017, this is non-severe wt loss of 22% in 15 months. Patient's weight has overall remained stable throughout this year. Pt admitted with acute hepatitis likely secondary to alcohol, somnolent and intoxicated in ED with Etoh level 0.224, currently receiving banana bag. Per H&P pt s/p CT of abdomen and pelvis which demonstrated a moderately distended esophageal lumen which may be caused by achalasia, pt currently NPO. Pt documented with no decrease in muscle strength and no edema. Pt currently lacks a minimum of two criteria for malnutrition. Will continue to follow. Addendum: 09/10/18 at [address] Amended: Links added.
[2018-09-10 11:52] LABS: GLUCOSE 134 MG/DL (70-104)
[2018-09-10] MEDS: ondansetron/PF 4mg/2ml inj IV PRN (14:01)
[2018-09-10] MEDS ORDERED: metoclopramide 5 mg/ml inj IV PRN (14:55)
[2018-09-10] MEDS ORDERED: BARIUM SULFATE 340 ML SUSP.RECON***PROCEDURE AREA ONLY**DONT ENTER PO ONE (15:00)
--- NOTE | 2018-09-10 18:05 | NUR ---
Problems reprioritized. Patient report given, questions answered & plan of care reviewed with BRIGETTE Shirley.
--- NOTE | 2018-09-10 18:42 | NUR ---
Patient in room [facility] 359. I have received report from Clarisse MACHUCA and had the opportunity to ask questions and assume patient care.
[2018-09-10 19:00] VITALS: BP 104/58
[2018-09-11] VITALS (10 sets, daily range): BP systolic 111–137; BP diastolic 63–91
[2018-09-11 06:26] LABS: BASOPHILS # (AUTO) 0.1 X10'3 (0-0.2); BASOPHILS % (AUTO) 1.3 % (0-1); EOSINOPHILS # (AUTO) 0.2 X10'3 (0-0.9); HEMATOCRIT 36.4 % (35.0-45.0); HEMOGLOBIN 12.4 g/dl (12.0-16.0); LYMPHOCYTES # (AUTO) 1.2 X10'3 (1.1-4.8); MEAN CORPUSCULAR HEMOGLOBIN 34.5 PG (27.0-31.0); MEAN CORPUSCULAR VOLUME 101.5 FL (78-98); MEAN PLATELET VOLUME 8.6 FL (7.4-10.4); MONOCYTES # (AUTO) 0.8 X10'3 (0-0.9); MONOCYTES % (AUTO) 14.5 % (2-12); NEUTROPHILS # (AUTO) 3.1 X10'3 (1.8-7.7); NEUTROPHILS % (AUTO) 58.2 % (42-75); PLATELET COUNT 334 X10'3 (140-440); RED BLOOD COUNT 3.59 X10'6 (4.20-5.60); RED CELL DISTRIBUTION WIDTH 15.2 % (11.5-14.5); WHITE BLOOD COUNT 5.4 X10'3 (4.5-11.0)
[2018-09-11 06:33] LABS: ALANINE AMINOTRANSFERASE 521 U/L (12-78); ALBUMIN 2.2 G/DL (3.4-5.0); ALBUMIN/GLOBULIN RATIO 0.6 (1.1-1.5); ALKALINE PHOSPHATASE 190 IU/L (46-116); ANION GAP 7 (8-16); ASPARTATE AMINO TRANSFERASE 417 U/L (10-37); BILIRUBIN,TOTAL 2.8 MG/DL (0.1-1.0); BLOOD UREA NITROGEN 7 MG/DL (7-18); CALCIUM 7.5 MG/DL (8.5-10.1); CHLORIDE 110 MMOL/L (99-107); CREATININE 0.54 MG/DL (0.40-0.90); MAGNESIUM 1.4 MG/DL (1.5-2.4); PHOSPHORUS 2.2 MG/DL (2.3-4.5); POTASSIUM 3.6 MMOL/L (3.5-5.1); SODIUM 142 MMOL/L (135-145); TOTAL PROTEIN 5.8 G/DL (6.4-8.2); eGFR > 90 ML/MIN
--- NOTE | 2018-09-11 06:33 | NUR ---
Problems reprioritized. Patient report given, questions answered & plan of care reviewed with Lexi MACHUCA.
[2018-09-11 06:37] LABS: GLUCOSE 87 MG/DL (70-104)
--- NOTE | 2018-09-11 07:30 | NUR ---
[facility] CALLED AND STATED THEY WOULD TAKE PT AT 1600. A FEW MINUTES LATER THEY CAME TO THE FLOOR AND SAID THEY WERE ABLE TO GET THE PT IN EARLY. NO MEDS WERE PASSED FOR THIS PT YET. PT GOING TO [facility]
[2018-09-11] MEDS: ESOMEPRAZOLE 40 MG VIAL IV SCH ×2 (08:00→19:08)
[2018-09-11] MEDS: thiamine inj. 100 MG, folic acid inj. 2 MG in normal saline 100ml IV soln 100.0 ML IV SCH (08:00)
[2018-09-11] MEDS: K and/or MAG REPLACEMENT MC SCH (08:00)
[2018-09-11] MEDS ORDERED: fentaNYL/PF 50MCG/1 ML 2ML syringe ONE (08:02)
[2018-09-11] MEDS ORDERED: MIDAZolam 5mg/5ml vial ONE ×2 (08:03→09:20)
[2018-09-11] MEDS ORDERED: LIDOcaine Viscous 15ml cup ONE (08:03)
[2018-09-11] MEDS ORDERED: diatrozoate meglu/diatrozoate sod (37% iodine) 120ML oral solution ONE (09:00)
[2018-09-11] MEDS ORDERED: potassium phosphate inj 30 MMOL in normal saline 500ml IV soln 490 ML IV ONE (09:30)
--- NOTE | 2018-09-11 10:30 | NUR ---
NURSE FROM GI CALLED AND STATED PT HAD ONE MORE PROCEDURE AND THEN WOULD BE BACK ON THE FLOOR.
--- NOTE | 2018-09-11 12:20 | NUR ---
PT CAME TO FLOOR AND NURSE STATES TO START DIET ORDER
--- NOTE | 2018-09-11 13:06 | NUR ---
CT CALLED, NEED A STAT CT. SENT FORM WAITING FOR CT TO COME
[2018-09-11] MEDS ORDERED: iohexol 300mg/ml 100ml inj. ONE (13:08)
[2018-09-11] MEDS: MVI, adult No.4 with vit. K 10 ML in dextrose 5% water 500ml 500 ML IV SCH ×2 (14:14)
--- NOTE | 2018-09-11 14:14 | NUR ---
Wound consult: Per [facility] notes pt with abscess to left ischium red and swollen with no open areas. No further nutrition intervention warranted at this time. Will continue to follow Addendum: 09/11/18 at [address] Amended: Links added.
--- NOTE | 2018-09-11 14:20 | NUR ---
PT IS BACK FROM [facility]. UNABLE TO PERFORM SOME OF HER TASKS SHE HAD BEEN OFF E FLOOR FOR 6 HOURS
[2018-09-11] MEDS: LORazepam 2 mg/ml vial IV PRN (14:24)
[2018-09-11] MEDS: potassium Cl 20mEq in NS 1,000 ML IV SCH (15:42)
--- NOTE | 2018-09-11 17:01 | NUR ---
Patient in room [facility] 359. I have received report from AGUSTIN MCAHUCA and had the opportunity to ask questions and assume patient care.
[2018-09-11] MEDS: dextrose 5%-normal saline 1,000 ML IV SCH (17:35)
--- NOTE | 2018-09-11 18:26 | NUR ---
GAVE REPORT TO PRUDENCE RN
[2018-09-11] MEDS: piperacillin/tazo 3.375gm/50ml 50 ML IV SCH (19:08)
[2018-09-11] MEDS ORDERED: acetaminophen 650mg rectal suppository RC PRN (20:25)
--- NOTE | 2018-09-11 22:22 | NUR ---
Patient did not shower due to multiple procedures performed during day time. She returned to the unit later in the afternoon. Addendum: 09/11/18 at 2223 by Fern Alfonso RN Amended: Links added.
--- NOTE | 2018-09-11 22:23 | NUR ---
Patient did not shower during day time due to multiple procedures. Bed bath offered. Addendum: 09/11/18 at 2225 by Fern Alfonso RN Amended: Links added.
[2018-09-11] MEDS ORDERED: LORazepam 1 MG tablet PO PRN (23:35)
[2018-09-11] MEDS ORDERED: LORazepam 2 mg/ml vial IV PRN (23:35)
[2018-09-12] VITALS: BP 124/60
[2018-09-12] MEDS: piperacillin/tazo 3.375gm/50ml 50 ML IV SCH ×3 (00:44→17:20)
[2018-09-12] MEDS: dextrose 5%-normal saline 1,000 ML IV SCH ×3 (03:20→21:05)
[2018-09-12 06:18] LABS: BASOPHILS % (AUTO) 0.3 % (0-1); EOSINOPHILS # (AUTO) 0.2 X10'3 (0-0.9); EOSINOPHILS % (AUTO) 2.9 % (0-6); HEMATOCRIT 39.2 % (35.0-45.0); HEMOGLOBIN 13.2 g/dl (12.0-16.0); LYMPHOCYTES % (AUTO) 14.9 % (21-51); MEAN CORPUSCULAR HGB CONC 33.7 g/dL (33.0-36.5); MEAN CORPUSCULAR VOLUME 100.9 FL (78-98); MEAN PLATELET VOLUME 8.5 FL (7.4-10.4); MONOCYTES # (AUTO) 0.9 X10'3 (0-0.9); MONOCYTES % (AUTO) 12.4 % (2-12); NEUTROPHILS # (AUTO) 4.8 X10'3 (1.8-7.7); NEUTROPHILS % (AUTO) 69.5 % (42-75); PLATELET COUNT 310 X10'3 (140-440); RED BLOOD COUNT 3.88 X10'6 (4.20-5.60); WHITE BLOOD COUNT 6.9 X10'3 (4.5-11.0)
--- NOTE | 2018-09-12 06:31 | NUR ---
Problems reprioritized. Patient report given, questions answered & plan of care reviewed with Teodora MACHUCA.
[2018-09-12 06:43] LABS: ALANINE AMINOTRANSFERASE 451 U/L (12-78); ALBUMIN 2.1 G/DL (3.4-5.0); ALBUMIN/GLOBULIN RATIO 0.5 (1.1-1.5); ALKALINE PHOSPHATASE 202 IU/L (46-116); ANION GAP 7 (8-16); ASPARTATE AMINO TRANSFERASE 341 U/L (10-37); BILIRUBIN,TOTAL 4.1 MG/DL (0.1-1.0); BLOOD UREA NITROGEN 4 MG/DL (7-18); BUN/CREATININE RATIO 7.3 (6.6-38.0); CALCIUM 7.6 MG/DL (8.5-10.1); CHLORIDE 102 MMOL/L (99-107); CREATININE 0.55 MG/DL (0.40-0.90); MAGNESIUM 2.1 MG/DL (1.5-2.4); PHOSPHORUS 2.4 MG/DL (2.3-4.5); SODIUM 138 MMOL/L (135-145); TOTAL CARBON DIOXIDE 29.4 MMOL/L (24-32); eGFR > 90 ML/MIN
[2018-09-12 06:44] LABS: GLUCOSE 105 MG/DL (70-104)
[2018-09-12 07:00] VITALS: BP 106/55
[2018-09-12] MEDS: K and/or MAG REPLACEMENT MC SCH (07:26)
[2018-09-12] MEDS: ESOMEPRAZOLE 40 MG VIAL IV SCH ×2 (07:39→19:46)
[2018-09-12] MEDS: thiamine inj. 100 MG, folic acid inj. 2 MG in normal saline 100ml IV soln 100.0 ML IV SCH (07:39)
[2018-09-12] MEDS: MVI, adult No.4 with vit. K 10 ML in dextrose 5% water 500ml 500 ML IV SCH ×2 (08:55)
[2018-09-12] MEDS: potassium CL 10mEq/100ml bag 100 ML IV PRN ×6 (09:19→22:10)
[2018-09-12] MEDS: morphine 2 MG/ML inj. syringe IV PRN ×4 (10:46→23:51)
[2018-09-12 11:00] VITALS: BP 128/74
--- NOTE | 2018-09-12 13:33 | NUR ---
TPN consult: Consult from MD indicates TPN possible pending on clinical course. 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 Pt s/p endoscopic clip and dilation of esophagus to 12 mm which may be good enough for full liquids however esophagus may narrow back down again d/t tear and clip per MD notes. Pt may also be able to tolerate full liquids if esophageal stent is placed however EN may be challenging or non-existent per MD notes. Patient previously on regular diet with documented 75% x 1 meal however has been NPO since that one meal (x 2 days). PO diet has just been advance to ice chips however pt has not had any yet per RN. Discussed consult with RN who states pt does not have a PICC or central line. RN states MD did not discuss time frame of which pt may need IV nutrition as it is unclear if this is a necessary route for nutrition at this point. Informed RN that if it will be short term (no greater than 3 days), PPN would be appropriate, although will be unable to meet nutrient needs, however TPN would be appropriate if pt to receive IV nutrition for longer time. Recommendations below for IF pt to receive IV nutrition, informed RN that recommendations can be found in RD note however will not be d/w pharmacy at this time as MD decision still pending on if pt to receive IV nutrition. Will f/u tomorrow. Recommendations: 1) IF short term and to receive PPN: continuous 2:1 Clinimix E 4.25/5 with goal rate of 75 mL/hr to run for 24 hours with separate 120 mL 20% intralipids with goal rate of 10 mL/hr to run for 12 hours; Will not meet 100% of estimated nutrient needs however appropriate for short term use 2) IF long-term and to receive TPN: continuous 2:1 Clinimix E 5/15 with goal rate of 70 mL to run for 24 hours with separate 240 mL 20% intralipids with goal rate of 20 mL/hr to run for 12 hours; Will meet 100% of patient's estimated nutrient needs and is appropriate for long-term use 3) Diet advancement as medically indicated if safe PO 4) Wt per rx Addendum: 09/12/18 at [address] Amended: Links added.
[2018-09-12] MEDS ORDERED: Trace element-5 inj. 1 ML in AA 4.25%/calcium/lytes/D5W 2,000 ML IV SCH (17:00)
[2018-09-12] MEDS: fat emulsion IV bag 250 ML IV SCH (17:52)
--- NOTE | 2018-09-12 18:25 | NUR ---
Patient in room [facility] 359. I have received report from Teodora MACHUCA and had the opportunity to ask questions and assume patient care.
--- NOTE | 2018-09-12 18:35 | NUR ---
Problems reprioritized. Patient report given, questions answered & plan of care reviewed with MORRO MACHUCA.
[2018-09-12 20:00] VITALS: BP 118/72
[2018-09-12] MEDS ORDERED: dextrose ORAL solution 15 GM/59 ML bottle PO PRN (22:35)
[2018-09-12] MEDS ORDERED: glucagon, human recombinant 1mg kit SUBCUT PRN (22:35)
[2018-09-12] MEDS ORDERED: dextrose 50%-water 50ml dispensing syringe IV PRN ×2 (22:35)
[2018-09-13] VITALS: BP 110/51
--- NOTE | 2018-09-13 | NUR ---
pt c/o pain and medicated for it with morphine. pt tolerated well. turning side to side and now using bedside commode.
[2018-09-13] MEDS: piperacillin/tazo 3.375gm/50ml 50 ML IV SCH ×4 (00:44→23:47)
--- NOTE | 2018-09-13 06:08 | NUR ---
Problems reprioritized. Patient report given, questions answered & plan of care reviewed with Teoodra MACHUCA.
[2018-09-13 06:44] LABS: ANION GAP 7 (8-16); BASOPHILS # (AUTO) 0.1 X10'3 (0-0.2); BASOPHILS % (AUTO) 1.2 % (0-1); BLOOD UREA NITROGEN 3 MG/DL (7-18); BUN/CREATININE RATIO 5.9 (6.6-38.0); CALCIUM 7.7 MG/DL (8.5-10.1); CHLORIDE 102 MMOL/L (99-107); CREATININE 0.51 MG/DL (0.40-0.90); EOSINOPHILS # (AUTO) 0.2 X10'3 (0-0.9); EOSINOPHILS % (AUTO) 3.8 % (0-6); GLUCOSE 130 MG/DL (70-104); HEMOGLOBIN 13.1 g/dl (12.0-16.0); LYMPHOCYTES # (AUTO) 1.3 X10'3 (1.1-4.8); LYMPHOCYTES % (AUTO) 19.9 % (21-51); MEAN CORPUSCULAR HEMOGLOBIN 34.2 PG (27.0-31.0); MEAN CORPUSCULAR HGB CONC 34.4 g/dL (33.0-36.5); MEAN CORPUSCULAR VOLUME 99.4 FL (78-98); MEAN PLATELET VOLUME 9.2 FL (7.4-10.4); MONOCYTES # (AUTO) 0.6 X10'3 (0-0.9); MONOCYTES % (AUTO) 9.7 % (2-12); NEUTROPHILS # (AUTO) 4.3 X10'3 (1.8-7.7); NEUTROPHILS % (AUTO) 65.4 % (42-75); PLATELET COUNT 295 X10'3 (140-440); RED BLOOD COUNT 3.83 X10'6 (4.20-5.60); RED CELL DISTRIBUTION WIDTH 15.4 % (11.5-14.5); SODIUM 137 MMOL/L (135-145); TOTAL CARBON DIOXIDE 27.7 MMOL/L (24-32); WHITE BLOOD COUNT 6.6 X10'3 (4.5-11.0); eGFR > 90 ML/MIN
[2018-09-13 06:45] LABS: ALANINE AMINOTRANSFERASE 339 U/L (12-78); ALBUMIN 2.1 G/DL (3.4-5.0); ALBUMIN/GLOBULIN RATIO 0.5 (1.1-1.5); ALKALINE PHOSPHATASE 189 IU/L (46-116); ASPARTATE AMINO TRANSFERASE 232 U/L (10-37); MAGNESIUM 1.2 MG/DL (1.5-2.4); PHOSPHORUS 3.3 MG/DL (2.3-4.5)
[2018-09-13 07:00] VITALS: BP 120/60
[2018-09-13] MEDS: thiamine inj. 100 MG, folic acid inj. 2 MG in normal saline 100ml IV soln 100.0 ML IV SCH (07:06)
[2018-09-13] MEDS ORDERED: potassium CL 10mEq/100ml bag 100 ML IV PRN (07:35)
[2018-09-13] MEDS: K and/or MAG REPLACEMENT MC SCH (07:57)
[2018-09-13] MEDS: ESOMEPRAZOLE 40 MG VIAL IV SCH ×2 (08:01→19:33)
[2018-09-13] MEDS: morphine 2 MG/ML inj. syringe IV PRN ×4 (08:12→23:47)
[2018-09-13] MEDS: MVI, adult No.4 with vit. K 10 ML in dextrose 5% water 500ml 500 ML IV SCH ×2 (08:29)
[2018-09-13] MEDS: potassium Cl 40MEQ/NS 500ml 500 ML IV SCH ×2 (08:29→16:32)
[2018-09-13 11:00] VITALS: BP 105/51
--- NOTE | 2018-09-13 14:09 | NUR ---
reassessment: Pt PPN was started awaiting central line placement Friday. Pt is able to swallow ice chips and having BM's x6 past 24 hours noted. K 3.0, Mg 1.2 and receiving electrolyte replacement. Per RN GI MD may take pt back for further stricture eval or possibly transfer to different facility. NONA d/w RN if pt to remain NPO r/t stricture may benefit from PEG given functioning gut; also in order to maintain gut integrity and prevent bacterial translocation. Pt was tolerating first meal 75% prior to PPN. Receiving banana bag for etoh hx. Will continue to monitor for further GI results and MD recs. No evidence of mediastinitis per surgeon note. Recommendations: 1) PPN per MD: continuous 2:1 Clinimix E 4.25/5 with goal rate of 75 mL/hr to run for 24 hours with separate 120 mL 20% intralipids with goal rate of 10 mL/hr to run for 12 hours; Will not meet 100% of estimated nutrient needs however appropriate for short term use 2) IF NPO at least 7-10 days and to receive central line: TPN continuous 2:1 Clinimix E 5/15 with goal rate of 70 mL to run for 24 hours with separate 240 mL 20%intralipids with goal rate of 20 mL/hr to run for 12 hours; Will meet 100%of patient's estimated nutrient needs and is appropriate for intermediate designer use 3) Diet advancement to low-residue as medically indicated per MD 4) If unable to take PO; consider PEG for long-term nutrition needs given functional gut 5) Continue banana bag given hx heavy Etoh abuse 6) Prealbumin Q /, daily wts Addendum: 09/13/18 at [address] Amended: Links added.
[2018-09-13] MEDS ORDERED: diatr meglu/diatrizoate 30ml oral sol.-(3 dose) bottle PO ONE (15:20)
[2018-09-13] MEDS ORDERED: Trace element-5 inj. 1 ML in AA 4.25%/calcium/lytes/D5W 2,000 ML IV SCH (17:00)
[2018-09-13] MEDS: fat emulsion IV bag 250 ML IV SCH (17:20)
--- NOTE | 2018-09-13 18:20 | NUR ---
Problems reprioritized. Patient report given, questions answered & plan of care reviewed with WILFRED MACHUCA. Addendum: 09/13/18 at 1823 by Magi Leos RN DISREGARD NOTE, KRUNAL MACHUCA
--- NOTE | 2018-09-13 18:25 | NUR ---
Problems reprioritized. Patient report given, questions answered & plan of care reviewed with BRIGID MACHUCA.
--- NOTE | 2018-09-13 18:54 | NUR ---
Patient in room [facility] 346. I have received report from Teodora Markham and had the opportunity to ask questions and assume patient care. Addendum: 09/13/18 at 1856 by Bonny Noonan RN Amended: Links added.
[2018-09-13 20:00] VITALS: BP 154/68
[2018-09-13] MEDS: insulin glargine (Lantus) pen - multi-dose SQ SCH (21:00)
--- NOTE | 2018-09-13 21:20 | NUR ---
PT INC OF URINE IN THE BED HAD COVERED IT UP DID NOT TELL THE RN SHE WAS WET. SKIN CARE DONE THEN HAD HELP COME IN TO DO A COMPLETE BED CHANGE. PT SAID SHE COULD GET UP WHEN WE DID THE BED CHANGE. UNHOOKED HER FROM IV'S COVERED ARMS TOOK HER TO THE SHOWER AND HAIR WASHED. PT CAME BACK AND WENT INTO CLEAN BED HYGIENE TEACHING DONE WITH HER AND NOTED SORE RIGHT BUTTOX RED AND OPENED NO DRAINAGE FROM IT. TEACHING DONE REGARDING SEPSIS FROM BEING INC AND LAYING IN IT AND NOT TELLING STAFF AND RESULTS OF IT CAN BE. TEACHING IMPORTANCE OF USING BEDPAN CALLING US OR BETTER YET BEDSIDE COMMODE TO VOID DONE. PT TEACHING DONE ON USING THE CALL LIGHT TO LET US KNOW SHE HAS VOIDED OR INC OF URINE. STRESSED IMPORTANCE OF SKIN REMAINING DRY. BOYFRIEND WENT IN THE SHOWER AND AWARE HE NEEDED TO CHANGE WHAT HE HAD ON. THEY ARE INSISTENT HE STAY AT THE BEDSIDE. HOSPITAL RULES WENT OVER WITH BOTH PT AND BOYFRIEND AND COMPLEMENTED ON BEING PLEASANT AND HELPFUL WITH STAFF.
[2018-09-13] MEDS ORDERED: LORazepam 1 MG tablet PO PRN (23:35)
--- NOTE | 2018-09-13 23:45 | NUR ---
pt c/o pain and medicated with morphine for it.
[2018-09-14] VITALS: BP 110/56
--- NOTE | 2018-09-14 00:05 | NUR ---
pt inc of small amt of urine after using the commode. told Rn skin care done and pad changed.
--- NOTE | 2018-09-14 01:05 | NUR ---
resting on her right side without s&s of distress at this time.
[2018-09-14] MEDS: magnesium 2GM in 50ml NS 50 ML IV PRN (01:32)
--- NOTE | 2018-09-14 01:35 | NUR ---
pt awoke inc of urine in the bed. skin care with complete lien changes done.
[2018-09-14] MEDS: dextrose 5%-normal saline 1,000 ML IV SCH ×2 (01:54→13:44)
[2018-09-14] MEDS: magnesium 4gm in 100ml NS 100 ML IV PRN (02:38)
--- NOTE | 2018-09-14 02:45 | NUR ---
second mag replacement infusing and blood sugar done.
--- NOTE | 2018-09-14 04:31 | NUR ---
pt inc of urine threw dry flow end of bed without telling the staff. more teaching gone over with the pt.
[2018-09-14 05:01] LABS: BASOPHILS # (AUTO) 0.1 X10'3 (0-0.2); EOSINOPHILS # (AUTO) 0.3 X10'3 (0-0.9); EOSINOPHILS % (AUTO) 5.4 % (0-6); HEMATOCRIT 39.3 % (35.0-45.0); HEMOGLOBIN 13.3 g/dl (12.0-16.0); LYMPHOCYTES # (AUTO) 1.3 X10'3 (1.1-4.8); LYMPHOCYTES % (AUTO) 22.3 % (21-51); MEAN CORPUSCULAR HEMOGLOBIN 34.1 PG (27.0-31.0); MEAN CORPUSCULAR HGB CONC 33.9 g/dL (33.0-36.5); MEAN CORPUSCULAR VOLUME 100.6 FL (78-98); MEAN PLATELET VOLUME 9.1 FL (7.4-10.4); MONOCYTES # (AUTO) 0.7 X10'3 (0-0.9); MONOCYTES % (AUTO) 11.2 % (2-12); NEUTROPHILS # (AUTO) 3.5 X10'3 (1.8-7.7); NEUTROPHILS % (AUTO) 60.1 % (42-75); PLATELET COUNT 302 X10'3 (140-440); RED CELL DISTRIBUTION WIDTH 14.8 % (11.5-14.5); WHITE BLOOD COUNT 5.9 X10'3 (4.5-11.0)
[2018-09-14 05:07] LABS: ANION GAP 7 (8-16); BILIRUBIN,TOTAL 2.4 MG/DL (0.1-1.0); BLOOD UREA NITROGEN 5 MG/DL (7-18); BUN/CREATININE RATIO 9.4 (6.6-38.0); CALCIUM 8.2 MG/DL (8.5-10.1); CHLORIDE 102 MMOL/L (99-107); CREATININE 0.53 MG/DL (0.40-0.90); MAGNESIUM 3.4 MG/DL (1.5-2.4); PHOSPHORUS 4.1 MG/DL (2.3-4.5); POTASSIUM 3.7 MMOL/L (3.5-5.1); SODIUM 135 MMOL/L (135-145); TOTAL CARBON DIOXIDE 25.9 MMOL/L (24-32); TOTAL PROTEIN 6.5 G/DL (6.4-8.2); eGFR > 90 ML/MIN
[2018-09-14 05:08] LABS: ALANINE AMINOTRANSFERASE 380 U/L (12-78); ALBUMIN 2.2 G/DL (3.4-5.0); ALBUMIN/GLOBULIN RATIO 0.5 (1.1-1.5); ALKALINE PHOSPHATASE 199 IU/L (46-116); ASPARTATE AMINO TRANSFERASE 342 U/L (10-37)
[2018-09-14 05:09] LABS: GLUCOSE 164 MG/DL (70-104)
--- NOTE | 2018-09-14 06:17 | NUR ---
Patient in room [facility] 346. I have received report from BRIGETTE Draper and had the opportunity to ask questions and assume patient care.
--- NOTE | 2018-09-14 06:53 | NUR ---
Problems reprioritized. Patient report given, questions answered & plan of care reviewed with DIONISIO MACHUCA. Addendum: 09/14/18 at 0653 by Bonny Noonan RN Amended: Links added.
[2018-09-14 07:27] VITALS: BP 103/60
[2018-09-14] MEDS: ESOMEPRAZOLE 40 MG VIAL IV SCH ×2 (07:49→20:42)
[2018-09-14] MEDS: piperacillin/tazo 3.375gm/50ml 50 ML IV SCH ×3 (07:49→16:14)
[2018-09-14] MEDS: thiamine inj. 100 MG, folic acid inj. 2 MG in normal saline 100ml IV soln 100.0 ML IV SCH (07:49)
[2018-09-14] MEDS: MVI, adult No.4 with vit. K 10 ML in dextrose 5% water 500ml 500 ML IV SCH ×2 (07:49)
[2018-09-14] MEDS: morphine 2 MG/ML inj. syringe IV PRN ×4 (07:50→20:42)
[2018-09-14] MEDS: K and/or MAG REPLACEMENT MC SCH (08:00)
[2018-09-14 11:45] VITALS: BP 115/72
--- NOTE | 2018-09-14 15:10 | NUR ---
F/u: Pt PPN weaned w/ TPN starting today s/p PICC placement. Dex/NS running while transitioning. Oral contrast seen outside of esophagus to keep strict NPO per MD note. RD d/w RN if prolonged NPO pt would benefit from PEG for optimal nutrition needs given functioning gut w/ BMs each day. Will continue to monitor. reassessment: Pt PPN was started awaiting central line placement Friday. Pt is able to swallow ice chips and having BM's x6 past 24 hours noted. K 3.0, Mg 1.2 and receiving electrolyte replacement. Per RN GI MD may take pt back for further stricture eval or possibly transfer to different facility. NONA d/w RN if pt to remain NPO r/t stricture may benefit from PEG given functioning gut; also in order to maintain gut integrity and prevent bacterial translocation. Pt was tolerating first meal 75% prior to PPN. Receiving banana bag for etoh hx. Will continue to monitor for further GI results and MD recs. No evidence of mediastinitis per surgeon note. Recommendations: 1) TPN continuous 2:1 Clinimix E 5/15 with goal rate of 70 mL to run for 24 hours with separate 240 mL 20%intralipids with goal rate of 20 mL/hr to run for 12hours; Will meet 100% of patient's estimated nutrient needs and is appropriate for termite exterminator use 2) Diet advancement to low-residue as medically indicated per MD 3) If unable to take PO; consider PEG for long-term nutrition needs given functional gut 4) Continue banana bag given hx heavy Etoh abuse 5) Prealbumin Q /, daily wts Addendum: 09/14/18 at [address] Amended: Links added.
[2018-09-14] MEDS: Trace element-5 inj. 1 ML in AA 5%/cal/electrolyte-TPN/D15W 2,000 ML IV SCH (15:50)
[2018-09-14] MEDS: FAT EMULSION IV SCH (15:50)
[2018-09-14] MEDS ORDERED: fat emulsion IV bag 120 ML IV SCH (17:00)
[2018-09-14 18:00] VITALS: BP 113/68
--- NOTE | 2018-09-14 18:40 | NUR ---
Patient in room [facility] 346. I have received report from Nicolle MACHUCA and had the opportunity to ask questions and assume patient care. Patient is finishing dinner, family at bedside, will continue to monitor.
--- NOTE | 2018-09-14 18:40 | NUR ---
Problems reprioritized. Patient report given, questions answered & plan of care reviewed with BRIGETTE Kathleen.
[2018-09-14] MEDS: lactobacillus rhamnosus 10,000 MMU CELLS/CAPSULE PO SCH (19:54)
[2018-09-14] MEDS: insulin regular, human vial - multi-dose SQ SCH (22:06)
[2018-09-14] MEDS: insulin glargine (Lantus) pen - multi-dose SQ SCH (22:08)
[2018-09-15] VITALS: BP 107/57
[2018-09-15] MEDS: piperacillin/tazo 3.375gm/50ml 50 ML IV SCH ×4 (00:31→23:28)
[2018-09-15] MEDS: insulin regular, human vial - multi-dose SQ SCH ×4 (03:22→20:29)
[2018-09-15 03:26] LABS: BASOPHILS # (AUTO) 0.1 X10'3 (0-0.2); BASOPHILS % (AUTO) 1.1 % (0-1); EOSINOPHILS # (AUTO) 0.4 X10'3 (0-0.9); EOSINOPHILS % (AUTO) 5.6 % (0-6); HEMATOCRIT 38.9 % (35.0-45.0); HEMOGLOBIN 13.5 g/dl (12.0-16.0); LYMPHOCYTES # (AUTO) 1.5 X10'3 (1.1-4.8); LYMPHOCYTES % (AUTO) 21.4 % (21-51); MEAN CORPUSCULAR HEMOGLOBIN 34.5 PG (27.0-31.0); MEAN CORPUSCULAR HGB CONC 34.6 g/dL (33.0-36.5); MEAN CORPUSCULAR VOLUME 99.7 FL (78-98); MEAN PLATELET VOLUME 8.6 FL (7.4-10.4); MONOCYTES # (AUTO) 0.8 X10'3 (0-0.9); NEUTROPHILS # (AUTO) 4.2 X10'3 (1.8-7.7); NEUTROPHILS % (AUTO) 59.9 % (42-75); PLATELET COUNT 322 X10'3 (140-440); RED CELL DISTRIBUTION WIDTH 14.9 % (11.5-14.5)
[2018-09-15] MEDS: morphine 2 MG/ML inj. syringe IV PRN ×5 (03:28→22:07)
[2018-09-15 03:40] LABS: ALANINE AMINOTRANSFERASE 395 U/L (12-78); ALBUMIN 2.3 G/DL (3.4-5.0); ALBUMIN/GLOBULIN RATIO 0.5 (1.1-1.5); ALKALINE PHOSPHATASE 225 IU/L (46-116); ANION GAP 5 (8-16); ASPARTATE AMINO TRANSFERASE 384 U/L (10-37); BILIRUBIN,TOTAL 1.6 MG/DL (0.1-1.0); BLOOD UREA NITROGEN 8 MG/DL (7-18); BUN/CREATININE RATIO 14.8 (6.6-38.0); CALCIUM 8.3 MG/DL (8.5-10.1); CHLORIDE 102 MMOL/L (99-107); CREATININE 0.54 MG/DL (0.40-0.90); MAGNESIUM 1.4 MG/DL (1.5-2.4); POTASSIUM 3.6 MMOL/L (3.5-5.1); SODIUM 135 MMOL/L (135-145); TOTAL CARBON DIOXIDE 27.7 MMOL/L (24-32); TOTAL PROTEIN 6.8 G/DL (6.4-8.2); eGFR > 90 ML/MIN
[2018-09-15 03:43] LABS: GLUCOSE 161 MG/DL (70-104)
--- NOTE | 2018-09-15 06:41 | NUR ---
Problems reprioritized. Patient report given, questions answered & plan of care reviewed with Nicolle MACHUCA.
[2018-09-15 08:00] VITALS: BP 115/71
[2018-09-15] MEDS: K and/or MAG REPLACEMENT MC SCH (08:00)
[2018-09-15] MEDS: ESOMEPRAZOLE 40 MG VIAL IV SCH ×2 (08:06→20:31)
[2018-09-15] MEDS: lactobacillus rhamnosus 10,000 MMU CELLS/CAPSULE PO SCH ×2 (08:09→20:31)
[2018-09-15] MEDS: magnesium 2GM in 50ml NS 50 ML IV PRN (08:09)
--- NOTE | 2018-09-15 10:31 | NUR ---
Reassessment: TPN now running at goal rate and pt tolerating with no s/s refeeding syndrome. Pt +1.4 kg since admit, not of concern at this time. Per MD notes pt to be treated with IV abx and NPO for a few days then trial clear liquid diet. Recommend nutrition support until pt able to tolerate regular foods PO with at least 65% PO intake. Otherwise pt may benefit from PEG if unsafe PO intake and requiring half-way nutrition support. LBM 09/14. Will continue to follow. F/u: Pt PPN weaned w/ TPN starting today s/p PICC placement. Dex/NS running while transitioning. Oral contrast seen outside of esophagus to keep strict NPO per MD note. RD d/w RN if prolonged NPO pt would benefit from PEG for optimal nutrition needs given functioning gut w/ BMs each day. Will continue to monitor. reassessment: Pt PPN was started awaiting central line placement Friday. Pt is able to swallow ice chips and having BM's x6 past 24 hours noted. K 3.0, Mg 1.2 and receiving electrolyte replacement. Per RN GI MD may take pt back for further stricture eval or possibly transfer to different facility. RD d/w RN if pt to remain NPO r/t stricture may benefit from PEG given functioning gut; also in order to maintain gut integrity and prevent bacterial translocation. Pt was tolerating first meal 75% prior to PPN. Receiving banana bag for etoh hx. Will continue to monitor for further GI results and MD recs. No evidence of mediastinitis per surgeon note. Recommendations: 1) TPN continuous 2:1 Clinimix E 5/15 with goal rate of 70 mL to run for 24 hours with separate 240 mL 20%intralipids with goal rate of 20 mL/hr to run for 12hours; In total will provide: 1920 mL total volume/day, 84 g protein, 252 g dextrose (dextrose load 3.125 mg/kg/min), 48 g lipids, 1336.8 non-protein kcals, and 1672.8 total kcals. Will meet 100% of patient's estimated nutrient needs and is appropriate for termite exterminator use 2) Diet advancement to low-residue as medically indicated per MD 3) If unable to take PO; consider PEG for long-term nutrition needs given functional gut 4) Continue banana bag given hx heavy Etoh abuse 5) Prealbumin Q M/Th, daily wts Addendum: 09/15/18 at [address] Amended: Links added.
--- NOTE | 2018-09-15 11:54 | NUR ---
I have reviewed and agree with all interventions, assessments performed and documented by BRIGETTE Garcia.
[2018-09-15 12:00] VITALS: BP 120/63
--- NOTE | 2018-09-15 12:06 | NUR ---
Patient in room [facility] 346. I have received report from BRIGETTE Kathleen and had the opportunity to ask questions and assume patient care.
[2018-09-15] MEDS: dextrose 5%-normal saline 1,000 ML IV SCH (13:04)
[2018-09-15] MEDS: FAT EMULSION IV SCH (15:14)
[2018-09-15] MEDS: Trace element-5 inj. 1 ML in AA 5%/cal/electrolyte-TPN/D15W 2,000 ML IV SCH (15:15)
[2018-09-15 18:00] VITALS: BP 109/55
--- NOTE | 2018-09-15 18:00 | NUR ---
Problems reprioritized. Patient report given, questions answered & plan of care reviewed with Sea.
--- NOTE | 2018-09-15 18:01 | NUR ---
Patient in room [facility] 346. I have received report from Abimbola, Jason and had the opportunity to ask questions and assume patient care.
[2018-09-15] MEDS: magnesium 4gm in 100ml NS 100 ML IV PRN (18:03)
[2018-09-15 20:00] VITALS: BP 109/55
[2018-09-15] MEDS: insulin glargine (Lantus) pen - multi-dose SQ SCH (21:39)
[2018-09-16] VITALS (7 sets, daily range): BP systolic 87–119; BP diastolic 50–67
[2018-09-16] MEDS: ondansetron/PF 4mg/2ml inj IV PRN (02:06)
[2018-09-16] MEDS: mag hydrox/Alum hydrox/simeth 30ml oral suspension PO PRN (02:15)
[2018-09-16] MEDS: insulin regular, human vial - multi-dose SQ SCH ×4 (02:21→20:23)
[2018-09-16] MEDS: LORazepam 2 mg/ml vial IV PRN (02:24)
--- NOTE | 2018-09-16 02:41 | NUR ---
Patient woke up suddenly with a "back cramp" that continued through to her chest. Directly after that she started dry heaving, then complaining of chest heaviness and jaw pain. An EKG was done and vitals were taken. Everything showed normal. notified.
[2018-09-16 05:00] LABS: BASOPHILS # (AUTO) 0.1 X10'3 (0-0.2); BASOPHILS % (AUTO) 0.9 % (0-1); EOSINOPHILS # (AUTO) 0.3 X10'3 (0-0.9); EOSINOPHILS % (AUTO) 4.2 % (0-6); HEMATOCRIT 39.4 % (35.0-45.0); HEMOGLOBIN 13.4 g/dl (12.0-16.0); LYMPHOCYTES # (AUTO) 1.2 X10'3 (1.1-4.8); LYMPHOCYTES % (AUTO) 15.2 % (21-51); MEAN CORPUSCULAR HEMOGLOBIN 34.1 PG (27.0-31.0); MEAN CORPUSCULAR HGB CONC 33.9 g/dL (33.0-36.5); MEAN CORPUSCULAR VOLUME 100.6 FL (78-98); MEAN PLATELET VOLUME 8.9 FL (7.4-10.4); MONOCYTES % (AUTO) 12.6 % (2-12); NEUTROPHILS # (AUTO) 5.3 X10'3 (1.8-7.7); NEUTROPHILS % (AUTO) 67.1 % (42-75); PLATELET COUNT 342 X10'3 (140-440); RED BLOOD COUNT 3.92 X10'6 (4.20-5.60); RED CELL DISTRIBUTION WIDTH 15.3 % (11.5-14.5)
[2018-09-16 05:10] LABS: POTASSIUM 3.2 MMOL/L (3.5-5.1); SODIUM 136 MMOL/L (135-145)
[2018-09-16 05:37] LABS: ALANINE AMINOTRANSFERASE 483 U/L (12-78); ALBUMIN 2.4 G/DL (3.4-5.0); ALBUMIN/GLOBULIN RATIO 0.5 (1.1-1.5); ALKALINE PHOSPHATASE 220 IU/L (46-116); ANION GAP 8 (8-16); ASPARTATE AMINO TRANSFERASE 417 U/L (10-37); BILIRUBIN,TOTAL 1.3 MG/DL (0.1-1.0); BLOOD UREA NITROGEN 11 MG/DL (7-18); BUN/CREATININE RATIO 20.8 (6.6-38.0); CALCIUM 8.2 MG/DL (8.5-10.1); CHLORIDE 101 MMOL/L (99-107); CREATININE 0.53 MG/DL (0.40-0.90); GLUCOSE 135 MG/DL (70-104); MAGNESIUM 1.8 MG/DL (1.5-2.4); TOTAL CARBON DIOXIDE 26.8 MMOL/L (24-32); TOTAL PROTEIN 6.9 G/DL (6.4-8.2); eGFR > 90 ML/MIN
--- NOTE | 2018-09-16 06:07 | NUR ---
Problems reprioritized. Patient report given, questions answered & plan of care reviewed with BRIGETTE Contreras.
[2018-09-16] MEDS: K and/or MAG REPLACEMENT MC SCH (08:00)
[2018-09-16] MEDS: piperacillin/tazo 3.375gm/50ml 50 ML IV SCH ×2 (09:06→16:29)
[2018-09-16] MEDS: morphine 2 MG/ML inj. syringe IV PRN ×3 (09:07→21:26)
[2018-09-16] MEDS: ESOMEPRAZOLE 40 MG VIAL IV SCH ×2 (09:07→20:19)
[2018-09-16] MEDS: lactobacillus rhamnosus 10,000 MMU CELLS/CAPSULE PO SCH ×2 (09:07→20:19)
[2018-09-16] MEDS: potassium CL 10mEq/100ml bag 100 ML IV PRN ×4 (10:44→16:29)
[2018-09-16 12:06] LABS: CLARITY,URINE CLOUDY (Clear); COLOR,URINE YELLOW (Yellow); GLUCOSE, URINE 100 mg/dl (Neg); KETONES,URINE NEGATIVE (Neg); LEUKOCYTE ESTERASE ,URINE NEGATIVE (Neg); NITRITES, URINE NEGATIVE (Neg); OCCULT BLOOD,URINE NEGATIVE (Neg); PROTEIN,URINE NEGATIVE (Neg); UROBILINOGEN,URINE >=8.0 E.U/dL (0.2-1.0)
[2018-09-16 12:10] LABS: UA COLLECTION TYPE NON-SPECIFIED
[2018-09-16 12:11] LABS: SQUAMOUS EPITHELIAL CELL,UR MANY /LPF (FEW)
[2018-09-16 12:12] LABS: BACTERIA,URINE FEW /HPF (Neg); RBC,URINE 0-2 /HPF (0-2); WBC,URINE 0-4 /HPF (0-4)
[2018-09-16 12:20] LABS: HEMOGLOBIN A1C 6.1 % (4.5-6.2)
--- NOTE | 2018-09-16 13:38 | NUR ---
PAGER ID: [phone] MESSAGE: [id number] Chyna Moreno Blood pressures have been a little low. Last one automatic . Retaken manually . Diane [id number]
[2018-09-16] MEDS ORDERED: normal saline 1000ml 1,000 ML IV SCH (13:45)
--- NOTE | 2018-09-16 14:00 | NUR ---
MD Silverman returned page. See bolus orders.
[2018-09-16] MEDS: FAT EMULSION IV SCH (14:28)
[2018-09-16] MEDS: Trace element-5 inj. 1 ML in AA 5%/cal/electrolyte-TPN/D15W 2,000 ML IV SCH (14:28)
[2018-09-16] MEDS: normal saline 1000ml 1,000 ML IV SCH (16:55)
--- NOTE | 2018-09-16 18:00 | NUR ---
Patient in room [facility] 346. I have received report from BRIGETTE Contreras and had the opportunity to ask questions and assume patient care.
[2018-09-16] MEDS: insulin glargine (Lantus) pen - multi-dose SQ SCH (21:19)
[2018-09-17] MEDS: piperacillin/tazo 3.375gm/50ml 50 ML IV SCH ×3 (00:26→16:15)
[2018-09-17 00:48] VITALS: BP 100/52
[2018-09-17] MEDS: insulin regular, human vial - multi-dose SQ SCH ×4 (02:18→20:52)
[2018-09-17 02:39] LABS: BASOPHILS # (AUTO) 0.1 X10'3 (0-0.2); BASOPHILS % (AUTO) 1.4 % (0-1); EOSINOPHILS # (AUTO) 0.3 X10'3 (0-0.9); EOSINOPHILS % (AUTO) 4.7 % (0-6); HEMOGLOBIN 12.1 g/dl (12.0-16.0); LYMPHOCYTES # (AUTO) 1.6 X10'3 (1.1-4.8); LYMPHOCYTES % (AUTO) 25.1 % (21-51); MEAN CORPUSCULAR HEMOGLOBIN 33.9 PG (27.0-31.0); MEAN CORPUSCULAR HGB CONC 33.7 g/dL (33.0-36.5); MEAN CORPUSCULAR VOLUME 100.6 FL (78-98); MEAN PLATELET VOLUME 8.8 FL (7.4-10.4); MONOCYTES # (AUTO) 1.1 X10'3 (0-0.9); MONOCYTES % (AUTO) 16.5 % (2-12); NEUTROPHILS # (AUTO) 3.4 X10'3 (1.8-7.7); NEUTROPHILS % (AUTO) 52.3 % (42-75); PLATELET COUNT 313 X10'3 (140-440); RED BLOOD COUNT 3.58 X10'6 (4.20-5.60); RED CELL DISTRIBUTION WIDTH 15.2 % (11.5-14.5); WHITE BLOOD COUNT 6.6 X10'3 (4.5-11.0)
[2018-09-17 02:48] LABS: ALANINE AMINOTRANSFERASE 432 U/L (12-78); ALBUMIN 2.2 G/DL (3.4-5.0); ALBUMIN/GLOBULIN RATIO 0.5 (1.1-1.5); ALKALINE PHOSPHATASE 197 IU/L (46-116); ANION GAP 7 (8-16); ASPARTATE AMINO TRANSFERASE 315 U/L (10-37); BLOOD UREA NITROGEN 10 MG/DL (7-18); BUN/CREATININE RATIO 19.6 (6.6-38.0); CALCIUM 8.1 MG/DL (8.5-10.1); CHLORIDE 104 MMOL/L (99-107); CREATININE 0.51 MG/DL (0.40-0.90); GLUCOSE 153 MG/DL (70-104); PHOSPHORUS 3.5 MG/DL (2.3-4.5); POTASSIUM 3.8 MMOL/L (3.5-5.1); SODIUM 137 MMOL/L (135-145); TOTAL CARBON DIOXIDE 26.4 MMOL/L (24-32); TOTAL PROTEIN 6.3 G/DL (6.4-8.2); eGFR > 90 ML/MIN
[2018-09-17] MEDS: normal saline 1000ml 1,000 ML IV SCH ×2 (03:15→12:55)
[2018-09-17 03:28] LABS: TOTAL CELLS COUNTED 100
[2018-09-17 03:29] LABS: PLATELET ESTIMATE NORMAL
[2018-09-17] MEDS: morphine 2 MG/ML inj. syringe IV PRN ×5 (05:02→22:22)
--- NOTE | 2018-09-17 06:57 | NUR ---
Problems reprioritized. Patient report given, questions answered & plan of care reviewed with BRIGETTE Honeycutt.
[2018-09-17 07:00] VITALS: BP 98/67
--- NOTE | 2018-09-17 07:04 | NUR ---
Patient in room [facility] 346. I have received report from Sea MACHUCA and had the opportunity to ask questions and assume patient care.
[2018-09-17] MEDS: K and/or MAG REPLACEMENT MC SCH (08:00)
[2018-09-17] MEDS: lactobacillus rhamnosus 10,000 MMU CELLS/CAPSULE PO SCH ×2 (08:14→20:07)
[2018-09-17] MEDS: ESOMEPRAZOLE 40 MG VIAL IV SCH ×2 (08:14→20:08)
--- NOTE | 2018-09-17 10:18 | NUR ---
WOUND INFECTION EDUCATION PROVIDED BY WOUND CARE 1. Patient instructed to call their primary doctor, or go the ED immediately if any of the following symptoms occur: * Increased pain in wound * Increase in drainage from the wound * Redness in the skin surrounding the wound * Warmth in the skin surrounding the wound * Bleeding from the wound * Temperature of 101 or greater 2. If any of these occur while in the hospital tell a nurse immediately. Addendum: 09/17/18 at 1019 by Drew Joyce RN Amended: Links added.
[2018-09-17] MEDS: Trace element-5 inj. 1 ML in AA 5%/cal/electrolyte-TPN/D15W 2,000 ML IV SCH (14:40)
[2018-09-17] MEDS: FAT EMULSION IV SCH (14:41)
--- NOTE | 2018-09-17 18:25 | NUR ---
Patient in room [facility] 346. I have received report from BRIGETTE NEFF and had the opportunity to ask questions and assume patient care. Addendum: 09/17/18 at 2213 by Davide Anderson RN Amended: Links added.
--- NOTE | 2018-09-17 18:44 | NUR ---
Problems reprioritized. Patient report given, questions answered & plan of care reviewed with thuan malone.
[2018-09-17 19:30] VITALS: BP 111/62
[2018-09-17] MEDS: insulin glargine (Lantus) pen - multi-dose SQ SCH (20:53)
[2018-09-18] VITALS: BP 103/58
[2018-09-18] MEDS: piperacillin/tazo 3.375gm/50ml 50 ML IV SCH ×3 (00:20→16:35)
[2018-09-18] MEDS: normal saline 1000ml 1,000 ML IV SCH ×4 (00:20→22:13)
[2018-09-18] MEDS: morphine 2 MG/ML inj. syringe IV PRN ×4 (03:33→22:03)
[2018-09-18] MEDS: insulin regular, human vial - multi-dose SQ SCH ×4 (03:43→20:11)
--- NOTE | 2018-09-18 06:07 | NUR ---
Problems reprioritized. Patient report given, questions answered & plan of care reviewed with BRIGETTE Honeycutt. Addendum: 09/18/18 at 0608 by Davide Anderson RN Amended: Links added.
--- NOTE | 2018-09-18 06:13 | NUR ---
Patient in room [facility] 346. I have received report from thuan MACHUCA and had the opportunity to ask questions and assume patient care.
[2018-09-18 07:12] VITALS: BP 89/42
[2018-09-18] MEDS: mag hydrox/Alum hydrox/simeth 30ml oral suspension PO PRN ×2 (07:27→11:43)
[2018-09-18] MEDS: ESOMEPRAZOLE 40 MG VIAL IV SCH ×2 (07:28→20:13)
[2018-09-18] MEDS: lactobacillus rhamnosus 10,000 MMU CELLS/CAPSULE PO SCH ×2 (07:28→20:13)
[2018-09-18] MEDS: K and/or MAG REPLACEMENT MC SCH (08:00)
[2018-09-18 09:28] LABS: BASOPHILS # (AUTO) 0.1 X10'3 (0-0.2); BASOPHILS % (AUTO) 1.5 % (0-1); EOSINOPHILS # (AUTO) 0.3 X10'3 (0-0.9); HEMATOCRIT 36.5 % (35.0-45.0); HEMOGLOBIN 12.5 g/dl (12.0-16.0); LYMPHOCYTES # (AUTO) 1.4 X10'3 (1.1-4.8); LYMPHOCYTES % (AUTO) 19.1 % (21-51); MEAN CORPUSCULAR HEMOGLOBIN 34.3 PG (27.0-31.0); MEAN CORPUSCULAR HGB CONC 34.3 g/dL (33.0-36.5); MEAN CORPUSCULAR VOLUME 100.1 FL (78-98); MEAN PLATELET VOLUME 8.6 FL (7.4-10.4); MONOCYTES # (AUTO) 1.2 X10'3 (0-0.9); MONOCYTES % (AUTO) 16.2 % (2-12); NEUTROPHILS # (AUTO) 4.5 X10'3 (1.8-7.7); NEUTROPHILS % (AUTO) 59.2 % (42-75); PLATELET COUNT 330 X10'3 (140-440); RED BLOOD COUNT 3.64 X10'6 (4.20-5.60); WHITE BLOOD COUNT 7.5 X10'3 (4.5-11.0)
[2018-09-18 09:43] LABS: ALANINE AMINOTRANSFERASE 531 U/L (12-78); ALBUMIN 2.3 G/DL (3.4-5.0); ALBUMIN/GLOBULIN RATIO 0.5 (1.1-1.5); ALKALINE PHOSPHATASE 193 IU/L (46-116); ANION GAP 7 (8-16); ASPARTATE AMINO TRANSFERASE 376 U/L (10-37); BLOOD UREA NITROGEN 10 MG/DL (7-18); BUN/CREATININE RATIO 19.2 (6.6-38.0); CALCIUM 8.5 MG/DL (8.5-10.1); CHLORIDE 103 MMOL/L (99-107); CREATININE 0.52 MG/DL (0.40-0.90); GLUCOSE 160 MG/DL (70-104); POTASSIUM 3.7 MMOL/L (3.5-5.1); SODIUM 137 MMOL/L (135-145); TOTAL CARBON DIOXIDE 27.1 MMOL/L (24-32); TOTAL PROTEIN 6.6 G/DL (6.4-8.2); eGFR > 90 ML/MIN
--- NOTE | 2018-09-18 09:53 | NUR ---
Reassessment: Pt continues with TPN at goal rate. Pending new labs for today however electrolytes WNL yesterday (09/17). Patient's PO diet has just been advanced to pureed with documented 25% PO intake of food and 100% PO intake of milk. This equates to 334 kcal and 19 g protein each meal. If pt continues with similar PO intake each meal she will consume ~1002 kcal/day and 58 g protein/day meeting 71% estimated energy needs and 100% estimated protein needs on the low end. Pt currently meeting nutrient needs with TPN. Recommend continuing with nutrition support until further advancement in diet order and pt tolerating with consistent PO intake of at least 50% of meals. LBM 09/17. Will continue to follow. Recommendations: 1) TPN continuous 2:1 Clinimix E 07/01 with goal rate of 70 mL to run for 24 hours with separate 240 mL 20%intralipids with goal rate of 20 mL/hr to run for 12hours; In total will provide: 1920 mL total volume/day, 84 g protein, 252 g dextrose (dextrose load 3.125 mg/kg/min), 48 g lipids, 1336.8 non-protein kcals, and 1672.8 total kcals. Will meet 100% of patient's estimated nutrient needs and is appropriate for closet builder use 2) Diet advancement to low-residue as medically indicated per MD 3) If unable to take PO; consider PEG for long-term nutrition needs given functional gut 4) Continue banana bag given hx heavy Etoh abuse 5) Prealbumin Q /, daily wts Addendum: 09/18/18 at [address] Amended: Links added.
[2018-09-18 11:00] VITALS: BP 94/52
[2018-09-18] MEDS: FAT EMULSION IV SCH (15:00)
[2018-09-18] MEDS: Trace element-5 inj. 1 ML in AA 5%/cal/electrolyte-TPN/D15W 2,000 ML IV SCH (15:00)
--- NOTE | 2018-09-18 18:12 | NUR ---
patient able to ambulate in hallway, at side. Encouraged to ambulate more often. patient stated she would. medicated for pain x2. patient requested maalox x2 for heart burn diet is pureed. patient advised to go slowly with eating due to narrowing of oesophagus. patient aware and compliant. Dr Silverman saw patient today. at bedside. Report given to Prudence BRIGETTE
[2018-09-18 19:00] VITALS: BP 90/50
[2018-09-18] MEDS: insulin glargine (Lantus) pen - multi-dose SQ SCH (22:02)
[2018-09-19] VITALS: BP 95/57
[2018-09-19] MEDS: piperacillin/tazo 3.375gm/50ml 50 ML IV SCH ×3 (00:38→15:51)
[2018-09-19] MEDS: mag hydrox/Alum hydrox/simeth 30ml oral suspension PO PRN (02:50)
[2018-09-19] MEDS: insulin regular, human vial - multi-dose SQ SCH ×4 (03:05→20:42)
[2018-09-19 05:14] LABS: BASOPHILS # (AUTO) 0.1 X10'3 (0-0.2); BASOPHILS % (AUTO) 1.7 % (0-1); EOSINOPHILS # (AUTO) 0.3 X10'3 (0-0.9); HEMATOCRIT 36.6 % (35.0-45.0); HEMOGLOBIN 11.9 g/dl (12.0-16.0); LYMPHOCYTES # (AUTO) 1.4 X10'3 (1.1-4.8); LYMPHOCYTES % (AUTO) 22.5 % (21-51); MEAN CORPUSCULAR HEMOGLOBIN 33.3 PG (27.0-31.0); MEAN CORPUSCULAR HGB CONC 32.7 g/dL (33.0-36.5); MEAN CORPUSCULAR VOLUME 101.9 FL (78-98); MEAN PLATELET VOLUME 8.5 FL (7.4-10.4); MONOCYTES # (AUTO) 1.2 X10'3 (0-0.9); MONOCYTES % (AUTO) 18.6 % (2-12); NEUTROPHILS # (AUTO) 3.2 X10'3 (1.8-7.7); NEUTROPHILS % (AUTO) 52.2 % (42-75); PLATELET COUNT 353 X10'3 (140-440); RED BLOOD COUNT 3.59 X10'6 (4.20-5.60); RED CELL DISTRIBUTION WIDTH 15.3 % (11.5-14.5); WHITE BLOOD COUNT 6.2 X10'3 (4.5-11.0)
[2018-09-19 05:39] LABS: ALANINE AMINOTRANSFERASE 569 U/L (12-78); ALBUMIN 2.3 G/DL (3.4-5.0); ALBUMIN/GLOBULIN RATIO 0.5 (1.1-1.5); ALKALINE PHOSPHATASE 190 IU/L (46-116); ANION GAP 7 (8-16); ASPARTATE AMINO TRANSFERASE 381 U/L (10-37); BILIRUBIN,TOTAL 0.9 MG/DL (0.1-1.0); BLOOD UREA NITROGEN 11 MG/DL (7-18); BUN/CREATININE RATIO 24.4 (6.6-38.0); CALCIUM 8.7 MG/DL (8.5-10.1); CHLORIDE 105 MMOL/L (99-107); CREATININE 0.45 MG/DL (0.40-0.90); GLUCOSE 137 MG/DL (70-104); POTASSIUM 3.5 MMOL/L (3.5-5.1); SODIUM 140 MMOL/L (135-145); TOTAL CARBON DIOXIDE 28.4 MMOL/L (24-32); TOTAL PROTEIN 6.6 G/DL (6.4-8.2); eGFR > 90 ML/MIN
[2018-09-19 05:58] LABS: LARGE PLATELETS FEW; PLATELET ESTIMATE NORMAL; TOTAL CELLS COUNTED 100
--- NOTE | 2018-09-19 06:15 | NUR ---
Patient in room [facility] 346. I have received report from BRIGETTE Shirley and had the opportunity to ask questions and assume patient care.
[2018-09-19 06:30] VITALS: BP 99/48
--- NOTE | 2018-09-19 06:54 | NUR ---
Problems reprioritized. Patient report given, questions answered & plan of care reviewed with Shruthi RN.
[2018-09-19] MEDS: morphine 2 MG/ML inj. syringe IV PRN ×3 (06:55→18:05)
[2018-09-19] MEDS: K and/or MAG REPLACEMENT MC SCH (07:16)
[2018-09-19] MEDS: ESOMEPRAZOLE 40 MG VIAL IV SCH ×2 (08:08→20:30)
[2018-09-19] MEDS: lactobacillus rhamnosus 10,000 MMU CELLS/CAPSULE PO SCH ×2 (08:14→20:30)
[2018-09-19 08:30] LABS: HBSAG SCREEN Positive (Negative); HEP A AB, IGM Negative (Negative); HEP B CORE AB, IGM Positive (Negative); HEPATITIS C ANTIBODY >11.0 s/co ratio (0.0-0.9)
[2018-09-19 11:00] VITALS: BP 101/56
[2018-09-19] MEDS: normal saline 1000ml 1,000 ML IV SCH (13:18)
[2018-09-19] MEDS: FAT EMULSION IV SCH (15:39)
[2018-09-19] MEDS: Trace element-5 inj. 1 ML in AA 5%/cal/electrolyte-TPN/D15W 2,000 ML IV SCH (15:39)
[2018-09-19] MEDS: JUVEN Shake w/Arg/Glut/Ca2+Bmb (Juven 19.3gm) pkt 240ml PO SCH (17:59)
[2018-09-19 18:00] VITALS: BP_SYST 139; BP_SYST 93; BP_DIAS 49; BP_DIAS 68
--- NOTE | 2018-09-19 18:15 | NUR ---
Problems reprioritized. Patient report given, questions answered & plan of care reviewed with BRIGETTE Jay & BRIGETTE Menendez.
[2018-09-19] MEDS: insulin glargine (Lantus) pen - multi-dose SQ SCH (20:33)
[2018-09-19] MEDS: LORazepam 2 mg/ml vial IV PRN (22:29)
[2018-09-20] VITALS: BP 99/61
[2018-09-20] MEDS: piperacillin/tazo 3.375gm/50ml 50 ML IV SCH ×4 (00:29→23:58)
[2018-09-20] MEDS: normal saline 1000ml 1,000 ML IV SCH ×3 (00:41→14:20)
[2018-09-20] MEDS: insulin regular, human vial - multi-dose SQ SCH ×4 (02:24→21:14)
[2018-09-20] MEDS: morphine 2 MG/ML inj. syringe IV PRN (03:43)
[2018-09-20 05:59] LABS: BASOPHILS # (AUTO) 0.1 X10'3 (0-0.2); EOSINOPHILS # (AUTO) 0.3 X10'3 (0-0.9); EOSINOPHILS % (AUTO) 5.6 % (0-6); HEMATOCRIT 35.9 % (35.0-45.0); LYMPHOCYTES # (AUTO) 1.7 X10'3 (1.1-4.8); LYMPHOCYTES % (AUTO) 27.8 % (21-51); MEAN CORPUSCULAR HEMOGLOBIN 34.3 PG (27.0-31.0); MEAN CORPUSCULAR HGB CONC 33.5 g/dL (33.0-36.5); MEAN CORPUSCULAR VOLUME 102.3 FL (78-98); MONOCYTES # (AUTO) 0.9 X10'3 (0-0.9); MONOCYTES % (AUTO) 14.6 % (2-12); NEUTROPHILS # (AUTO) 3.1 X10'3 (1.8-7.7); PLATELET COUNT 366 X10'3 (140-440); RED BLOOD COUNT 3.51 X10'6 (4.20-5.60); RED CELL DISTRIBUTION WIDTH 15.3 % (11.5-14.5); WHITE BLOOD COUNT 6.1 X10'3 (4.5-11.0)
--- NOTE | 2018-09-20 06:15 | NUR ---
Patient in room [facility] 346. I have received report from BRIGETTE Jay and had the opportunity to ask questions and assume patient care.
[2018-09-20 06:23] LABS: ALANINE AMINOTRANSFERASE 609 U/L (12-78); ALBUMIN 2.5 G/DL (3.4-5.0); ALBUMIN/GLOBULIN RATIO 0.6 (1.1-1.5); ALKALINE PHOSPHATASE 188 IU/L (46-116); ANION GAP 8 (8-16); ASPARTATE AMINO TRANSFERASE 387 U/L (10-37); BILIRUBIN,TOTAL 0.9 MG/DL (0.1-1.0); BLOOD UREA NITROGEN 11 MG/DL (7-18); BUN/CREATININE RATIO 18.6 (6.6-38.0); CALCIUM 8.6 MG/DL (8.5-10.1); CHLORIDE 104 MMOL/L (99-107); CREATININE 0.59 MG/DL (0.40-0.90); GLUCOSE 115 MG/DL (70-104); POTASSIUM 3.4 MMOL/L (3.5-5.1); SODIUM 140 MMOL/L (135-145); TOTAL CARBON DIOXIDE 28.5 MMOL/L (24-32); TOTAL PROTEIN 6.9 G/DL (6.4-8.2); eGFR > 90 ML/MIN
[2018-09-20 06:30] VITALS: BP 93/60
[2018-09-20] MEDS: K and/or MAG REPLACEMENT MC SCH (07:12)
[2018-09-20] MEDS ORDERED: potassium Cl 20 mEq SR tablet PO PRN (07:30)
[2018-09-20] MEDS: JUVEN Shake w/Arg/Glut/Ca2+Bmb (Juven 19.3gm) pkt 240ml PO SCH ×3 (07:54→18:25)
[2018-09-20] MEDS: ESOMEPRAZOLE 40 MG VIAL IV SCH ×2 (08:01→19:48)
[2018-09-20] MEDS: potassium Cl 20 mEq SR tablet PO PRN ×3 (08:01→17:05)
[2018-09-20] MEDS: lactobacillus rhamnosus 10,000 MMU CELLS/CAPSULE PO SCH ×2 (08:02→19:47)
[2018-09-20 11:00] VITALS: BP 100/56
[2018-09-20] MEDS: oxyCODONE IR 5mg (immed. release) tablet PO PRN ×3 (13:12→23:57)
[2018-09-20] MEDS: Trace element-5 inj. 1 ML in AA 5%/cal/electrolyte-TPN/D15W 2,000 ML IV SCH (15:44)
[2018-09-20] MEDS: FAT EMULSION IV SCH ×2 (15:44→20:14)
[2018-09-20 18:00] VITALS: BP 101/42
--- NOTE | 2018-09-20 18:05 | NUR ---
Problems reprioritized. Patient report given, questions answered & plan of care reviewed with BRIGETTE James.
--- NOTE | 2018-09-20 18:48 | NUR ---
Patient in room [facility] 346. I have received report from BRIGETTE Hawkins and had the opportunity to ask questions and assume patient care.
[2018-09-20] MEDS: insulin glargine (Lantus) pen - multi-dose SQ SCH (21:11)
[2018-09-21] VITALS: BP 93/60
[2018-09-21] MEDS: insulin regular, human vial - multi-dose SQ SCH ×4 (02:03→20:08)
[2018-09-21] MEDS: oxyCODONE IR 5mg (immed. release) tablet PO PRN ×4 (04:00→22:29)
[2018-09-21 04:32] LABS: ALANINE AMINOTRANSFERASE 676 U/L (12-78); ALBUMIN 2.3 G/DL (3.4-5.0); ALBUMIN/GLOBULIN RATIO 0.5 (1.1-1.5); ALKALINE PHOSPHATASE 184 IU/L (46-116); ANION GAP 5 (8-16); ASPARTATE AMINO TRANSFERASE 476 U/L (10-37); BILIRUBIN,TOTAL 0.8 MG/DL (0.1-1.0); BLOOD UREA NITROGEN 16 MG/DL (7-18); BUN/CREATININE RATIO 29.6 (6.6-38.0); CALCIUM 8.6 MG/DL (8.5-10.1); CHLORIDE 104 MMOL/L (99-107); CREATININE 0.54 MG/DL (0.40-0.90); GLUCOSE 60 MG/DL (70-104); PHOSPHORUS 5.3 MG/DL (2.3-4.5); POTASSIUM 3.7 MMOL/L (3.5-5.1); SODIUM 138 MMOL/L (135-145); TOTAL CARBON DIOXIDE 28.7 MMOL/L (24-32); TOTAL PROTEIN 6.6 G/DL (6.4-8.2); TRIGLYCERIDES 166 MG/DL (20-135); eGFR > 90 ML/MIN
--- NOTE | 2018-09-21 06:19 | NUR ---
Problems reprioritized. Patient report given, questions answered & plan of care reviewed with BRIGETTE Hawkins.
--- NOTE | 2018-09-21 06:20 | NUR ---
Patient in room [facility] 346. I have received report from BRIGETTE James and had the opportunity to ask questions and assume patient care.
[2018-09-21 06:27] LABS: UREA NITROGEN 24HR,URINE 11.5 GM/24HR (7-20)
[2018-09-21 06:30] VITALS: BP 94/56
[2018-09-21] MEDS: K and/or MAG REPLACEMENT MC SCH (06:32)
[2018-09-21] MEDS: normal saline 1000ml 1,000 ML IV SCH ×2 (06:54→10:58)
[2018-09-21] MEDS: ESOMEPRAZOLE 40 MG VIAL IV SCH ×2 (06:58→19:39)
[2018-09-21] MEDS: ondansetron/PF 4mg/2ml inj IV PRN (06:58)
[2018-09-21] MEDS: piperacillin/tazo 3.375gm/50ml 50 ML IV SCH ×2 (06:58→16:06)
[2018-09-21] MEDS: lactobacillus rhamnosus 10,000 MMU CELLS/CAPSULE PO SCH ×2 (06:59→19:38)
[2018-09-21] MEDS: JUVEN Shake w/Arg/Glut/Ca2+Bmb (Juven 19.3gm) pkt 240ml PO SCH ×3 (07:39→18:49)
[2018-09-21 11:00] VITALS: BP 91/52
[2018-09-21] MEDS ORDERED: TRACE ELEMENT IV SCH (13:00)
[2018-09-21] MEDS ORDERED: [UNRECOGNIZED DRUG - OTHER] IV SCH (13:00)
[2018-09-21] MEDS ORDERED: AMINO ACID IV SCH (13:00)
[2018-09-21] MEDS: FAT EMULSION IV SCH (14:56)
--- NOTE | 2018-09-21 15:04 | NUR ---
reassessment: Pt TPN at goal and tolerating; changed to non-E per clinical pharmacist today r/t elevated Phos 5.3. Pt is PO 25-50% meals w/ 100% ensure high protein good PO intake. LBM 8/3. Given functional gut and able to meet needs via PO TPN is not indicated at this time; RD d/w . MD reports future esophageal stent placement and per surgeon TPN until s/p stent. Typically pt can have PO diet advancement 1-2 days s/p stent. Per MD note Mg/K adjusted per RD; all electrolyte and TPN adjustments are made via pharmacy RD only provides macronutrient recs as seen below. Will monitor for TPN wean and PO diet tolerance. Recommendations: 1) TPN continuous 2:1 Clinimix non-E 07/01 at goal rate of 70 mL to run for 24 hours with separate 240 mL 20%intralipids with goal rate of 20 mL/hr to run for 12hours; In total will provide: 1920 mL total volume/day, 84 g protein, 252 g dextrose (dextrose load 3.125 mg/kg/min), 48 g lipids, 1336.8 non-protein kcals, and 1672.8 total kcals. Will meet 100% of patient's estimated nutrient needs and is appropriate for ferry terminal agent use 2) Continue pureed/thin diet per MD 4) ensure high protein TIDWM per MD 5) MVI/thiamin/folic w/ hx heavy Etoh abuse 6) Prealbumin Q M/Th, daily wts 7) Wean TPN given functional gut and tolerating PO per approval Addendum: 09/21/18 at [address] Amended: Links added.
[2018-09-21 16:41] LABS: HIV ANTIBODY 1&2 RAPID NON-REACTIVE (Neg)
[2018-09-21 18:00] VITALS: BP 97/40
--- NOTE | 2018-09-21 18:30 | NUR ---
Problems reprioritized. Patient report given, questions answered & plan of care reviewed with BRIGETTE Jordan.
--- NOTE | 2018-09-21 19:02 | NUR ---
Patient in room [facility] 346. I have received report from BRIGETTE Hawkins and had the opportunity to ask questions and assume patient care.
[2018-09-21] MEDS: insulin glargine (Lantus) pen - multi-dose SQ SCH (20:10)
[2018-09-22] VITALS (17 sets, daily range): BP systolic 97–117; BP diastolic 55–81
[2018-09-22] MEDS: piperacillin/tazo 3.375gm/50ml 50 ML IV SCH ×3 (00:08→15:16)
[2018-09-22] MEDS: LORazepam 2 mg/ml vial IV PRN (01:07)
[2018-09-22] MEDS: Trace element-5 inj. 1 ML in amino acid 5%/D15W 2,000 ML IV SCH ×2 (02:41→13:57)
[2018-09-22] MEDS: normal saline 1000ml 1,000 ML IV SCH ×3 (02:42→23:56)
[2018-09-22 04:00] LABS: BASOPHILS % (AUTO) 0.3 % (0-1); EOSINOPHILS # (AUTO) 0.3 X10'3 (0-0.9); EOSINOPHILS % (AUTO) 5.3 % (0-6); HEMOGLOBIN 11.3 g/dl (12.0-16.0); LYMPHOCYTES # (AUTO) 1.6 X10'3 (1.1-4.8); LYMPHOCYTES % (AUTO) 27.8 % (21-51); MEAN CORPUSCULAR HEMOGLOBIN 34.3 PG (27.0-31.0); MEAN CORPUSCULAR HGB CONC 34.1 g/dL (33.0-36.5); MEAN CORPUSCULAR VOLUME 100.8 FL (78-98); MEAN PLATELET VOLUME 8.3 FL (7.4-10.4); MONOCYTES % (AUTO) 16.6 % (2-12); NEUTROPHILS # (AUTO) 2.9 X10'3 (1.8-7.7); PLATELET COUNT 374 X10'3 (140-440); RED BLOOD COUNT 3.28 X10'6 (4.20-5.60); RED CELL DISTRIBUTION WIDTH 15.1 % (11.5-14.5); WHITE BLOOD COUNT 5.9 X10'3 (4.5-11.0)
[2018-09-22 04:11] LABS: ALANINE AMINOTRANSFERASE 772 U/L (12-78); ALBUMIN 2.3 G/DL (3.4-5.0); ALBUMIN/GLOBULIN RATIO 0.5 (1.1-1.5); ALKALINE PHOSPHATASE 181 IU/L (46-116); ANION GAP 5 (8-16); ASPARTATE AMINO TRANSFERASE 538 U/L (10-37); BILIRUBIN,TOTAL 0.9 MG/DL (0.1-1.0); BLOOD UREA NITROGEN 16 MG/DL (7-18); BUN/CREATININE RATIO 26.7 (6.6-38.0); CALCIUM 8.2 MG/DL (8.5-10.1); CHLORIDE 103 MMOL/L (99-107); GLUCOSE 105 MG/DL (70-104); MAGNESIUM 1.3 MG/DL (1.5-2.4); POTASSIUM 3.6 MMOL/L (3.5-5.1); SODIUM 138 MMOL/L (135-145); TOTAL CARBON DIOXIDE 30.3 MMOL/L (24-32); TOTAL PROTEIN 6.5 G/DL (6.4-8.2); eGFR > 90 ML/MIN
--- NOTE | 2018-09-22 06:41 | NUR ---
Problems reprioritized. Patient report given, questions answered & plan of care reviewed with BRIGETTE Valverde.
[2018-09-22] MEDS: lactobacillus rhamnosus 10,000 MMU CELLS/CAPSULE PO SCH ×2 (07:38→20:51)
[2018-09-22] MEDS: JUVEN Shake w/Arg/Glut/Ca2+Bmb (Juven 19.3gm) pkt 240ml PO SCH ×3 (07:38→18:00)
[2018-09-22] MEDS: ESOMEPRAZOLE 40 MG VIAL IV SCH ×2 (07:38→20:52)
[2018-09-22] MEDS: insulin regular, human vial - multi-dose SQ SCH ×2 (07:46→16:16)
[2018-09-22] MEDS: K and/or MAG REPLACEMENT MC SCH (08:00)
--- NOTE | 2018-09-22 09:53 | NUR ---
Noted that pt with active NPO and pureed diet order. D/w RN that states pt is just NPO for lunch d/t pending esophageal stent, dietary informed not to send lunch tray. Will continue to follow. Addendum: 09/22/18 at [address] Amended: Links added.
[2018-09-22] MEDS: oxyCODONE IR 5mg (immed. release) tablet PO PRN ×3 (10:28→21:28)
[2018-09-22] MEDS: mag hydrox/Alum hydrox/simeth 30ml oral suspension PO PRN (11:37)
[2018-09-22] MEDS: magnesium 4gm in 100ml NS 100 ML IV PRN (11:37)
--- NOTE | 2018-09-22 11:59 | NUR ---
Pt requested a brief to wear and I educated her regarding the risks of skin breakdown with continuous use and wear. I set up the bedside commode for the pt to access easily, and provided a clean pair of mesh underpants. Pt stated understanding and willingness to comply with plan. Will continue to monitor.
[2018-09-22] MEDS: ondansetron/PF 4mg/2ml inj IV PRN (12:52)
[2018-09-22] MEDS: magnesium 2GM in 50ml NS 50 ML IV PRN (13:57)
--- NOTE | 2018-09-22 14:14 | NUR ---
Pt found wearing brief in bed. Removed brief and reinforced education regarding risk of skin breakdown to pt and . Pt and stated comprehension. Will continue to monitor.
[2018-09-22] MEDS ORDERED: fentaNYL/PF 50MCG/1 ML 2ML syringe ONE (14:25)
[2018-09-22] MEDS ORDERED: MIDAZolam 5mg/5ml vial ONE (14:26)
[2018-09-22] MEDS ORDERED: LIDOcaine Viscous 15ml cup ONE (14:26)
[2018-09-22] MEDS ORDERED: diphenhydrAMINE 50 mg/ml inj ONE (14:26)
[2018-09-22] MEDS: FAT EMULSION IV SCH (15:16)
[2018-09-22] MEDS ORDERED: iohexol 300 MG/1 ML 50ml polymer ONE (17:31)
--- NOTE | 2018-09-22 18:39 | NUR ---
Patient in room [facility]. I have received report from BRIGETTE Valverde and had the opportunity to ask questions and assume patient care. Patient is having a esophageal stent placed.
--- NOTE | 2018-09-22 18:51 | NUR ---
Problems reprioritized. Patient report given, questions answered & plan of care reviewed with BRIGETTE Jordan.
--- NOTE | 2018-09-22 19:13 | NUR ---
Patient in room [facility]. I have received report from Radha GARCIA RN at bedside and had the opportunity to ask questions and assume patient care. Patient one person assist back to bed after voiding. In no apparent distress
[2018-09-22] MEDS: insulin glargine (Lantus) pen - multi-dose SQ SCH (21:00)
[2018-09-22] MEDS: dextrose ORAL solution 15 GM/59 ML bottle PO PRN (21:36)
--- NOTE | 2018-09-22 23:30 | NUR ---
pt complainde of feeling nauseous, an shaky while I was giving medication. I was also going to check her BG and when I did she was 58, glucose shot given per protocal, rechecked 15 mins later and BG was 89. Patient is now asymptomatic
[2018-09-23] VITALS: BP 117/75
[2018-09-23] MEDS: mag hydrox/Alum hydrox/simeth 30ml oral suspension PO PRN ×2 (00:01→19:15)
[2018-09-23] MEDS: piperacillin/tazo 3.375gm/50ml 50 ML IV SCH ×3 (00:01→15:06)
--- NOTE | 2018-09-23 03:43 | NUR ---
Patient is refusing to get up and walk. Educated her of the importance of walking especially after a procedure. She was admit that she was not going to walk until later this morning.
[2018-09-23] MEDS: oxyCODONE IR 5mg (immed. release) tablet PO PRN ×4 (03:49→18:47)
[2018-09-23 04:00] VITALS: BP 104/71
--- NOTE | 2018-09-23 06:43 | NUR ---
Problems reprioritized. Patient report given, questions answered & plan of care reviewed with BRIGETTE Felix.
--- NOTE | 2018-09-23 07:14 | NUR ---
Patient in room [facility]. I have received report from BRIGETTE BOWERS and had the opportunity to ask questions and assume patient care.
[2018-09-23] MEDS: K and/or MAG REPLACEMENT MC SCH (08:00)
[2018-09-23] MEDS: JUVEN Shake w/Arg/Glut/Ca2+Bmb (Juven 19.3gm) pkt 240ml PO SCH ×3 (08:12→18:03)
[2018-09-23] MEDS: ESOMEPRAZOLE 40 MG VIAL IV SCH ×2 (08:14→20:21)
[2018-09-23] MEDS: lactobacillus rhamnosus 10,000 MMU CELLS/CAPSULE PO SCH ×2 (08:22→20:20)
[2018-09-23 08:43] LABS: BASOPHILS # (AUTO) 0.1 X10'3 (0-0.2); BASOPHILS % (AUTO) 1.4 % (0-1); EOSINOPHILS # (AUTO) 0.3 X10'3 (0-0.9); EOSINOPHILS % (AUTO) 4.8 % (0-6); HEMATOCRIT 34.1 % (35.0-45.0); HEMOGLOBIN 11.5 g/dl (12.0-16.0); LYMPHOCYTES # (AUTO) 1.5 X10'3 (1.1-4.8); LYMPHOCYTES % (AUTO) 21.5 % (21-51); MEAN CORPUSCULAR HEMOGLOBIN 34.1 PG (27.0-31.0); MEAN CORPUSCULAR HGB CONC 33.8 g/dL (33.0-36.5); MEAN CORPUSCULAR VOLUME 101.1 FL (78-98); MEAN PLATELET VOLUME 8.5 FL (7.4-10.4); MONOCYTES # (AUTO) 0.9 X10'3 (0-0.9); NEUTROPHILS # (AUTO) 4.2 X10'3 (1.8-7.7); NEUTROPHILS % (AUTO) 59.3 % (42-75); PLATELET COUNT 379 X10'3 (140-440); RED BLOOD COUNT 3.37 X10'6 (4.20-5.60); RED CELL DISTRIBUTION WIDTH 15.2 % (11.5-14.5)
[2018-09-23] MEDS: insulin regular, human vial - multi-dose SQ SCH ×3 (08:43→20:41)
[2018-09-23] MEDS: normal saline 1000ml 1,000 ML IV SCH ×3 (08:55→20:46)
[2018-09-23 09:33] LABS: ALANINE AMINOTRANSFERASE 855 U/L (12-78); ALBUMIN 2.3 G/DL (3.4-5.0); ALBUMIN/GLOBULIN RATIO 0.5 (1.1-1.5); ALKALINE PHOSPHATASE 171 IU/L (46-116); ANION GAP 7 (8-16); ASPARTATE AMINO TRANSFERASE 536 U/L (10-37); BILIRUBIN,TOTAL 0.9 MG/DL (0.1-1.0); BLOOD UREA NITROGEN 14 MG/DL (7-18); BUN/CREATININE RATIO 29.8 (6.6-38.0); CALCIUM 7.8 MG/DL (8.5-10.1); CHLORIDE 105 MMOL/L (99-107); CREATININE 0.47 MG/DL (0.40-0.90); GLUCOSE 141 MG/DL (70-104); POTASSIUM 3.5 MMOL/L (3.5-5.1); SODIUM 138 MMOL/L (135-145); TOTAL CARBON DIOXIDE 26.2 MMOL/L (24-32); TOTAL PROTEIN 6.7 G/DL (6.4-8.2); eGFR > 90 ML/MIN
[2018-09-23 12:59] VITALS: BP 90/50
[2018-09-23] MEDS: Trace element-5 inj. 1 ML in amino acid 5%/D15W 2,000 ML IV SCH (13:59)
[2018-09-23] MEDS: FAT EMULSION IV SCH (15:06)
--- NOTE | 2018-09-23 18:41 | NUR ---
Problems reprioritized. Patient report given, questions answered & plan of care reviewed with BRIGETTE LOPEZ.
--- NOTE | 2018-09-23 18:43 | NUR ---
Patient in room [facility]. I have received report from NICOLE MACHUCA and had the opportunity to ask questions and assume patient care.
[2018-09-23 20:00] VITALS: BP 103/62
[2018-09-23] MEDS: insulin glargine (Lantus) pen - multi-dose SQ SCH (20:43)
[2018-09-23] MEDS: LORazepam 2 mg/ml vial IV PRN (22:59)
[2018-09-24] VITALS: BP 105/57
[2018-09-24] MEDS: piperacillin/tazo 3.375gm/50ml 50 ML IV SCH ×2 (00:21→08:31)
[2018-09-24] MEDS: insulin regular, human vial - multi-dose SQ SCH ×4 (03:29→21:25)
[2018-09-24] MEDS: oxyCODONE IR 5mg (immed. release) tablet PO PRN ×4 (05:58→21:18)
[2018-09-24 06:18] LABS: BASOPHILS # (AUTO) 0.1 X10'3 (0-0.2); BASOPHILS % (AUTO) 1.3 % (0-1); EOSINOPHILS # (AUTO) 0.4 X10'3 (0-0.9); EOSINOPHILS % (AUTO) 5.9 % (0-6); HEMATOCRIT 34.5 % (35.0-45.0); HEMOGLOBIN 11.8 g/dl (12.0-16.0); LYMPHOCYTES # (AUTO) 1.8 X10'3 (1.1-4.8); MEAN CORPUSCULAR HEMOGLOBIN 34.4 PG (27.0-31.0); MEAN CORPUSCULAR HGB CONC 34.1 g/dL (33.0-36.5); MEAN CORPUSCULAR VOLUME 100.9 FL (78-98); MEAN PLATELET VOLUME 8.6 FL (7.4-10.4); MONOCYTES % (AUTO) 14.1 % (2-12); NEUTROPHILS # (AUTO) 4.1 X10'3 (1.8-7.7); NEUTROPHILS % (AUTO) 54.7 % (42-75); PLATELET COUNT 413 X10'3 (140-440); RED BLOOD COUNT 3.42 X10'6 (4.20-5.60); RED CELL DISTRIBUTION WIDTH 15.1 % (11.5-14.5); WHITE BLOOD COUNT 7.4 X10'3 (4.5-11.0)
--- NOTE | 2018-09-24 06:30 | NUR ---
Problems reprioritized. Patient report given, questions answered & plan of care reviewed with CELSO MACHUCA.
[2018-09-24 06:38] LABS: ALANINE AMINOTRANSFERASE 934 U/L (12-78); ALBUMIN 2.3 G/DL (3.4-5.0); ALBUMIN/GLOBULIN RATIO 0.5 (1.1-1.5); ALKALINE PHOSPHATASE 178 IU/L (46-116); ANION GAP 5 (8-16); ASPARTATE AMINO TRANSFERASE 700 U/L (10-37); BILIRUBIN,TOTAL 0.9 MG/DL (0.1-1.0); BLOOD UREA NITROGEN 11 MG/DL (7-18); CALCIUM 8.1 MG/DL (8.5-10.1); CHLORIDE 107 MMOL/L (99-107); CREATININE 0.55 MG/DL (0.40-0.90); GLUCOSE 89 MG/DL (70-104); MAGNESIUM 1.4 MG/DL (1.5-2.4); PHOSPHORUS 2.4 MG/DL (2.3-4.5); POTASSIUM 3.1 MMOL/L (3.5-5.1); SODIUM 140 MMOL/L (135-145); TOTAL PROTEIN 6.7 G/DL (6.4-8.2); eGFR > 90 ML/MIN
[2018-09-24 07:00] VITALS: BP 109/61
[2018-09-24] MEDS: K and/or MAG REPLACEMENT MC SCH (08:00)
[2018-09-24] MEDS: normal saline 1000ml 1,000 ML IV SCH ×2 (08:30→19:56)
[2018-09-24] MEDS: lactobacillus rhamnosus 10,000 MMU CELLS/CAPSULE PO SCH ×2 (08:31→19:56)
[2018-09-24] MEDS: ESOMEPRAZOLE 40 MG VIAL IV SCH ×2 (08:31→19:56)
[2018-09-24] MEDS: JUVEN Shake w/Arg/Glut/Ca2+Bmb (Juven 19.3gm) pkt 240ml PO SCH (08:31)
--- NOTE | 2018-09-24 10:04 | NUR ---
Reassessment: Patient s/p esophageal stent placement with MD recs a soft diet for 2 months. Patient's PO diet now clear liquid documented with 100% at breakfast this morning. Pt continues meeting nutrient needs with TPN running at goal. Pt with K and mag replacement PRN. Patient with steady increasing trend in wt now +6 kg since admit using chair scale vs bed scale. Likely increase in wt is r/t to fluid as pt with +7.5L fluid balance over the last five days. LBM 8/7. Will continue to follow. reassessment: Pt TPN at goal and tolerating; changed to non-E per clinical pharmacist today r/t elevated Phos 5.3. Pt is PO 25-50% meals w/ 100% ensure high protein good PO intake. LBM 8/. Given functional gut and able to meet needs via PO TPN is not indicated at this time; RD d/w . MD reports future esophageal stent placement and per surgeon TPN until s/p stent. Typically pt can have PO diet advancement 1-2 days s/p stent. Per MD note Mg/K adjusted per RD; all electrolyte and TPN adjustments are made via pharmacy RD only provides macronutrient recs as seen below. Will monitor for TPN wean and PO diet tolerance. Recommendations: 1) TPN continuous 2:1 Clinimix non-E 15 at goal rate of 70 mL to run for 24 hours with separate 240 mL 20%intralipids with goal rate of 20 mL/hr to run for 12hours; In total will provide: 1920 mL total volume/day, 84 g protein, 252 g dextrose (dextrose load 3.125 mg/kg/min), 48 g lipids, 1336.8 non-protein kcals, and 1672.8 total kcals. 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
[2018-09-24 11:14] VITALS: BP 101/49
[2018-09-24] MEDS: dextrose ORAL solution 15 GM/59 ML bottle PO PRN ×2 (11:54→12:13)
--- NOTE | 2018-09-24 12:00 | NUR ---
stated to give patient 2gm of mag for a mag level of 1.4.
[2018-09-24] MEDS ORDERED: potassium Cl 20 mEq SR tablet PO PRN (12:20)
[2018-09-24] MEDS ORDERED: magnesium Cl slow-release 64mg tablet PO PRN (12:20)
[2018-09-24] MEDS: potassium Cl 20 mEq SR tablet PO PRN ×3 (12:29→21:18)
[2018-09-24] MEDS: magnesium 2GM in 50ml NS 50 ML IV PRN (12:29)
[2018-09-24] MEDS: NUT.TX.IMPAIRED DIGEST FXN (Ensure Clear) 237 ML PO SCH ×2 (13:00→18:01)
[2018-09-24] MEDS: FAT EMULSION IV SCH (14:14)
[2018-09-24] MEDS: Trace element-5 inj. 1 ML in amino acid 5%/D15W 2,000 ML IV SCH (14:15)
--- NOTE | 2018-09-24 18:21 | NUR ---
Problems reprioritized. Patient report given, questions answered & plan of care reviewed with BRIGETTE Molina.
--- NOTE | 2018-09-24 18:35 | NUR ---
Patient stated PICC line fell out. Linda AVINA. he stated to leave the PICC out for now through chandelier maker and reassess in the AM. mandrel cleaner RN aware and will get D10% infusing.
--- NOTE | 2018-09-24 18:40 | NUR ---
Patient in room [facility]. I have received report from CELSO MACHUCA and had the opportunity to ask questions and assume patient care.
[2018-09-24] MEDS: Dextrose 10%-water IV solution 1,000 ML IV PRN (18:58)
[2018-09-24 20:00] VITALS: BP 104/62
[2018-09-24] MEDS: insulin glargine (Lantus) pen - multi-dose SQ SCH (21:23)
[2018-09-25] VITALS: BP 85/50
[2018-09-25 04:59] LABS: BASOPHILS % (AUTO) 0.6 % (0-1); EOSINOPHILS # (AUTO) 0.5 X10'3 (0-0.9); EOSINOPHILS % (AUTO) 7.7 % (0-6); HEMOGLOBIN 12.2 g/dl (12.0-16.0); LYMPHOCYTES % (AUTO) 28.3 % (21-51); MEAN CORPUSCULAR HGB CONC 33.7 g/dL (33.0-36.5); MEAN CORPUSCULAR VOLUME 100.7 FL (78-98); MEAN PLATELET VOLUME 8.3 FL (7.4-10.4); MONOCYTES # (AUTO) 1.1 X10'3 (0-0.9); MONOCYTES % (AUTO) 16.1 % (2-12); NEUTROPHILS # (AUTO) 3.3 X10'3 (1.8-7.7); NEUTROPHILS % (AUTO) 47.3 % (42-75); PLATELET COUNT 409 X10'3 (140-440); RED BLOOD COUNT 3.58 X10'6 (4.20-5.60); RED CELL DISTRIBUTION WIDTH 15.3 % (11.5-14.5); WHITE BLOOD COUNT 7.1 X10'3 (4.5-11.0)
[2018-09-25] MEDS: LORazepam 2 mg/ml vial IV PRN ×2 (05:12→21:14)
[2018-09-25 05:32] LABS: ALBUMIN 2.3 G/DL (3.4-5.0); ALBUMIN/GLOBULIN RATIO 0.5 (1.1-1.5); ALKALINE PHOSPHATASE 192 IU/L (46-116); BLOOD UREA NITROGEN 9 MG/DL (7-18); MAGNESIUM 1.5 MG/DL (1.5-2.4); POTASSIUM 3.4 MMOL/L (3.5-5.1); SODIUM 138 MMOL/L (135-145); TOTAL PROTEIN 6.8 G/DL (6.4-8.2)
[2018-09-25 05:50] LABS: ANION GAP 9 (8-16); ASPARTATE AMINO TRANSFERASE 802 U/L (10-37); BUN/CREATININE RATIO 16.1 (6.6-38.0); CALCIUM 8.8 MG/DL (8.5-10.1); CHLORIDE 104 MMOL/L (99-107); CREATININE 0.56 MG/DL (0.40-0.90); GLUCOSE 118 MG/DL (70-104); eGFR > 90 ML/MIN
[2018-09-25 05:53] LABS: ALANINE AMINOTRANSFERASE 1134 U/L (12-78)
[2018-09-25 06:00] VITALS: BP 91/45
--- NOTE | 2018-09-25 06:27 | NUR ---
Problems reprioritized. Patient report given, questions answered & plan of care reviewed with DIONISIO MACHUCA.
--- NOTE | 2018-09-25 06:45 | NUR ---
Patient in room [facility]. I have received report from BRIGETTE Molina and had the opportunity to ask questions and assume patient care.
[2018-09-25] MEDS: NUT.TX.IMPAIRED DIGEST FXN (Ensure Clear) 237 ML PO SCH ×3 (08:00→19:00)
[2018-09-25] MEDS: K and/or MAG REPLACEMENT MC SCH (08:00)
[2018-09-25] MEDS: lactobacillus rhamnosus 10,000 MMU CELLS/CAPSULE PO SCH ×2 (08:06→20:02)
[2018-09-25] MEDS: ESOMEPRAZOLE 40 MG VIAL IV SCH ×2 (08:06→19:58)
[2018-09-25] MEDS: insulin regular, human vial - multi-dose SQ SCH ×2 (08:17→14:56)
[2018-09-25] MEDS: Dextrose 10%-water IV solution 1,000 ML IV PRN ×2 (08:25→22:43)
[2018-09-25] MEDS: oxyCODONE IR 5mg (immed. release) tablet PO PRN ×4 (08:27→23:52)
[2018-09-25] MEDS: normal saline 1000ml 1,000 ML IV SCH ×2 (10:42→19:53)
[2018-09-25 11:00] VITALS: BP 92/57
[2018-09-25] MEDS: potassium Cl 20 mEq SR tablet PO PRN ×2 (12:51→17:48)
--- NOTE | 2018-09-25 18:22 | NUR ---
Problems reprioritized. Patient report given, questions answered & plan of care reviewed with BRIGETTE Molina.
--- NOTE | 2018-09-25 18:30 | NUR ---
Patient in room [facility]. I have received report from DIONISIO MACHUCA and had the opportunity to ask questions and assume patient care.
--- NOTE | 2018-09-25 18:58 | NUR ---
PAGED DR. PERALES AND WAS INFORMED THAT PATIENT HAS NO PICC LINE YET BECAUSE DR. ESQUIVEL PER REPORT CAME AND SEE THE PATIENT AND THINK THAT HE DON'T NEED A PICC LINE AND ADVANCED DIET TO FULL LIQUIDS AND MAY START MECHANICAL SOFT TOMORROW. DR. PERALES ORDER TO CONTINUE D10W AT 70ML/HR FOR TONIGHT AND WILL EVALUATE TOMORROW.
[2018-09-25] MEDS ORDERED: POTASSIUM BICARB 20meq eff tab 20 MEQ TABLET.EFF PO PRN (19:25)
[2018-09-25 20:00] VITALS: BP 101/68
[2018-09-25] MEDS: insulin glargine (Lantus) pen - multi-dose SQ SCH (21:12)
[2018-09-26] VITALS: BP 92/56
[2018-09-26 05:54] LABS: ALBUMIN 2.3 G/DL (3.4-5.0); ALBUMIN/GLOBULIN RATIO 0.5 (1.1-1.5); ALKALINE PHOSPHATASE 202 IU/L (46-116); ANION GAP 9 (8-16); ASPARTATE AMINO TRANSFERASE 697 U/L (10-37); BILIRUBIN,TOTAL 0.9 MG/DL (0.1-1.0); BLOOD UREA NITROGEN 5 MG/DL (7-18); BUN/CREATININE RATIO 9.6 (6.6-38.0); CALCIUM 8.3 MG/DL (8.5-10.1); CHLORIDE 104 MMOL/L (99-107); CREATININE 0.52 MG/DL (0.40-0.90); GLUCOSE 98 MG/DL (70-104); MAGNESIUM 1.2 MG/DL (1.5-2.4); POTASSIUM 3.6 MMOL/L (3.5-5.1); SODIUM 139 MMOL/L (135-145); TOTAL CARBON DIOXIDE 26.2 MMOL/L (24-32); TOTAL PROTEIN 6.7 G/DL (6.4-8.2); eGFR > 90 ML/MIN
[2018-09-26 06:14] LABS: ALANINE AMINOTRANSFERASE 1176 U/L (12-78)
--- NOTE | 2018-09-26 06:24 | NUR ---
Problems reprioritized. Patient report given, questions answered & plan of care reviewed with DIONISIO MACHUCA.
--- NOTE | 2018-09-26 06:51 | NUR ---
Patient in room [facility]. I have received report from BRIGETTE Molina and had the opportunity to ask questions and assume patient care.
[2018-09-26 07:20] VITALS: BP 93/51
[2018-09-26] MEDS: ESOMEPRAZOLE 40 MG VIAL IV SCH ×2 (07:38→20:37)
[2018-09-26] MEDS: lactobacillus rhamnosus 10,000 MMU CELLS/CAPSULE PO SCH ×2 (07:38→20:38)
[2018-09-26] MEDS: oxyCODONE IR 5mg (immed. release) tablet PO PRN ×3 (07:39→20:51)
[2018-09-26] MEDS: NUT.TX.IMPAIRED DIGEST FXN (Ensure Clear) 237 ML PO SCH ×3 (08:00→18:00)
[2018-09-26] MEDS: K and/or MAG REPLACEMENT MC SCH (08:00)
[2018-09-26 11:00] VITALS: BP 81/47
[2018-09-26] MEDS: normal saline 1000ml 1,000 ML IV SCH ×2 (11:03→16:55)
[2018-09-26] MEDS: Dextrose 10%-water IV solution 1,000 ML IV PRN (13:14)
[2018-09-26] MEDS: insulin regular, human vial - multi-dose SQ SCH (14:25)
[2018-09-26] MEDS ORDERED: magnesium 4gm in 100ml NS 100 ML IV ONE (16:05)
--- NOTE | 2018-09-26 18:33 | NUR ---
Problems reprioritized. Patient report given, questions answered & plan of care reviewed with BRIGETTE Draper.
--- NOTE | 2018-09-26 18:43 | NUR ---
Patient in room [facility]. I have received report from DIONISIO MACHUCA and had the opportunity to ask questions and assume patient care. Addendum: 09/26/18 at 1845 by Bonny Noonan RN Amended: Links added.
--- NOTE | 2018-09-26 19:10 | NUR ---
pt resting on right side without s&s of distress at this time.
[2018-09-26 20:00] VITALS: BP 104/69
[2018-09-26] MEDS: insulin glargine (Lantus) pen - multi-dose SQ SCH (20:49)
--- NOTE | 2018-09-26 20:50 | NUR ---
pt took hs meds earlier and c/o abd pain and medicated with oxy ir for this.
--- NOTE | 2018-09-26 21:30 | NUR ---
pt up ambulating in the [place] tolerated well.
--- NOTE | 2018-09-26 23:06 | NUR ---
pt resting eyes closed without changes at this time.
[2018-09-27] VITALS: BP 97/51
[2018-09-27] MEDS: normal saline 1000ml 1,000 ML IV SCH ×4 (00:17→22:55)
--- NOTE | 2018-09-27 00:20 | NUR ---
medicated with 1mg Ativan for anxiety
[2018-09-27] MEDS: LORazepam 2 mg/ml vial IV PRN (00:24)
--- NOTE | 2018-09-27 02:15 | NUR ---
awoke accucheck blood sugar 94 and c/o pain and medicated for abd pAIN with oxy ir.
[2018-09-27] MEDS: oxyCODONE IR 5mg (immed. release) tablet PO PRN ×5 (02:24→23:45)
[2018-09-27] MEDS: Dextrose 10%-water IV solution 1,000 ML IV PRN ×2 (02:37→15:43)
--- NOTE | 2018-09-27 03:53 | NUR ---
resting without changes.
--- NOTE | 2018-09-27 04:41 | NUR ---
woke up briefly repositioned self in bed.
[2018-09-27 06:13] LABS: BASOPHILS # (AUTO) 0.1 X10'3 (0-0.2); EOSINOPHILS # (AUTO) 0.5 X10'3 (0-0.9); EOSINOPHILS % (AUTO) 7.6 % (0-6); MEAN PLATELET VOLUME 8.8 FL (7.4-10.4); WHITE BLOOD COUNT 6.7 X10'3 (4.5-11.0)
[2018-09-27 06:15] LABS: BASOPHILS % (AUTO) 1.3 % (0-1); HEMATOCRIT 34.5 % (35.0-45.0); HEMOGLOBIN 11.6 g/dl (12.0-16.0); LYMPHOCYTES % (AUTO) 30.3 % (21-51); MEAN CORPUSCULAR HEMOGLOBIN 34.2 PG (27.0-31.0); MEAN CORPUSCULAR HGB CONC 33.8 g/dL (33.0-36.5); MEAN CORPUSCULAR VOLUME 101.2 FL (78-98); MONOCYTES # (AUTO) 0.9 X10'3 (0-0.9); MONOCYTES % (AUTO) 13.4 % (2-12); NEUTROPHILS # (AUTO) 3.2 X10'3 (1.8-7.7); NEUTROPHILS % (AUTO) 47.4 % (42-75); PLATELET COUNT 450 X10'3 (140-440); RED CELL DISTRIBUTION WIDTH 15.4 % (11.5-14.5)
--- NOTE | 2018-09-27 06:17 | NUR ---
Problems reprioritized. Patient report given, questions answered & plan of care reviewed with Nicolle Markham. Addendum: 09/27/18 at 0618 by Bonny Noonan RN Amended: Links added.
--- NOTE | 2018-09-27 06:21 | NUR ---
Patient in room [facility] 346. I have received report from BRIGETTE Draper and had the opportunity to ask questions and assume patient care.
[2018-09-27 06:42] LABS: ALBUMIN 2.2 G/DL (3.4-5.0); ALBUMIN/GLOBULIN RATIO 0.5 (1.1-1.5); ALKALINE PHOSPHATASE 209 IU/L (46-116); ANION GAP 7 (8-16); ASPARTATE AMINO TRANSFERASE 506 U/L (10-37); BLOOD UREA NITROGEN 6 MG/DL (7-18); BUN/CREATININE RATIO 11.1 (6.6-38.0); CHLORIDE 105 MMOL/L (99-107); CREATININE 0.54 MG/DL (0.40-0.90); GLUCOSE 145 MG/DL (70-104); MAGNESIUM 1.6 MG/DL (1.5-2.4); POTASSIUM 3.4 MMOL/L (3.5-5.1); SODIUM 138 MMOL/L (135-145); TOTAL CARBON DIOXIDE 25.7 MMOL/L (24-32); TOTAL PROTEIN 6.6 G/DL (6.4-8.2); eGFR > 90 ML/MIN
[2018-09-27 06:45] LABS: ALANINE AMINOTRANSFERASE 1040 U/L (12-78)
[2018-09-27] MEDS: lactobacillus rhamnosus 10,000 MMU CELLS/CAPSULE PO SCH ×2 (07:42→19:38)
[2018-09-27] MEDS: ESOMEPRAZOLE 40 MG VIAL IV SCH ×2 (07:42→19:38)
[2018-09-27] MEDS: POTASSIUM BICARB 20meq eff tab 20 MEQ TABLET.EFF PO PRN (07:42)
[2018-09-27] MEDS: insulin regular, human vial - multi-dose SQ SCH ×2 (07:48→14:29)
[2018-09-27 08:00] VITALS: BP 87/53
[2018-09-27] MEDS: K and/or MAG REPLACEMENT MC SCH (08:00)
[2018-09-27] MEDS: NUT.TX.IMPAIRED DIGEST FXN (Ensure Clear) 237 ML PO SCH ×3 (08:02→18:00)
[2018-09-27 08:51] LABS: ANISOCYTOSIS 1+; PLATELET ESTIMATE INCREASED; TARGET CELLS 1+
[2018-09-27 08:52] LABS: POLYCHROMASIA FEW
[2018-09-27 11:37] VITALS: BP 93/66
--- NOTE | 2018-09-27 16:11 | NUR ---
reassessment: Pt TPN has been d/c advanced to full liquids diet. Moderate BM 09/25. Pt PO remains low 0-25% w/ mainly 25% meals but is fluctuating. Some abdominal discomfort per MD though can be expected given no significant EN stimulation while on TPN. Esophagogram results still severe stricture in lower gastroesophageal junction per MD note. 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 Ensure Enlive TIDWM; pending MD verification prior to sending w/ meals. Will continue to monitor. Recommendations: 1) Advance to low-residue diet per MD 2) Ensure Enlive TIDWM; pending MD verification prior to sending 3) MVI/thiamin/folic w/ hx heavy Etoh abuse 4) Consider PEG for long-term nutrition needs given severe persistent stricture s/p dilation Addendum: 09/27/18 at [address] Amended: Links added.
[2018-09-27] MEDS: lactose-reduced food (Ensure Enlive) - 237ml bottle PO SCH (18:00)
--- NOTE | 2018-09-27 18:40 | NUR ---
Problems reprioritized. Patient report given, questions answered & plan of care reviewed with BRIGETTE Draper.
--- NOTE | 2018-09-27 18:53 | NUR ---
Patient in room [facility]. I have received report from Nicolle Markham and had the opportunity to ask questions and assume patient care. Addendum: 09/27/18 at 1853 by Bonny Noonan RN Amended: Links added.
--- NOTE | 2018-09-27 19:50 | NUR ---
pt c/o abd pain and medicated for this with oxy ir 5mg. pt took replacement potassium and rest of hs meds at this time.
[2018-09-27 20:00] VITALS: BP 109/73
[2018-09-27] MEDS: insulin glargine (Lantus) pen - multi-dose SQ SCH (20:17)
--- NOTE | 2018-09-27 23:45 | NUR ---
medicated for abd pain at this time.
[2018-09-28] VITALS (11 sets, daily range): BP systolic 72–124; BP diastolic 45–79
--- NOTE | 2018-09-28 00:33 | NUR ---
resting on side no changes.
--- NOTE | 2018-09-28 02:25 | NUR ---
awoke accucheck 125 and voiding on the commode. pt receptive to teaching at this time. she talked about wanting to get back on her PTSD meds and follow up with [facility]. she's attempting to make plans to stay with a non drinking friend with her .
[2018-09-28] MEDS: Dextrose 10%-water IV solution 1,000 ML IV PRN (04:22)
[2018-09-28] MEDS: normal saline 1000ml 1,000 ML IV SCH ×3 (04:24→20:12)
--- NOTE | 2018-09-28 04:30 | NUR ---
new iv fluid bags hung and tubing as due today. pt awake tolerated well.
--- NOTE | 2018-09-28 05:26 | NUR ---
pt resting without s&s of distress at this time.
[2018-09-28] MEDS: oxyCODONE IR 5mg (immed. release) tablet PO PRN ×2 (05:50→11:11)
--- NOTE | 2018-09-28 05:51 | NUR ---
awoke medicated for pain 8/10 abd pain.
--- NOTE | 2018-09-28 06:42 | NUR ---
Problems reprioritized. Patient report given, questions answered & plan of care reviewed with JACKY MACHUCA. Addendum: 09/28/18 at 0643 by Bonny Noonan RN Amended: Links added.
--- NOTE | 2018-09-28 06:45 | NUR ---
Patient in room [facility]. I have received report from Bonny MACHUCA and had the opportunity to ask questions and assume patient care.
[2018-09-28 07:01] LABS: BASOPHILS # (AUTO) 0.1 X10'3 (0-0.2); EOSINOPHILS # (AUTO) 0.6 X10'3 (0-0.9); EOSINOPHILS % (AUTO) 9.5 % (0-6); HEMATOCRIT 35.1 % (35.0-45.0); HEMOGLOBIN 11.9 g/dl (12.0-16.0); LYMPHOCYTES # (AUTO) 2.1 X10'3 (1.1-4.8); LYMPHOCYTES % (AUTO) 35.3 % (21-51); MEAN CORPUSCULAR HEMOGLOBIN 34.1 PG (27.0-31.0); MEAN CORPUSCULAR VOLUME 100.4 FL (78-98); MEAN PLATELET VOLUME 8.1 FL (7.4-10.4); MONOCYTES # (AUTO) 0.8 X10'3 (0-0.9); MONOCYTES % (AUTO) 13.7 % (2-12); NEUTROPHILS # (AUTO) 2.4 X10'3 (1.8-7.7); NEUTROPHILS % (AUTO) 39.5 % (42-75); PLATELET COUNT 438 X10'3 (140-440); RED CELL DISTRIBUTION WIDTH 14.8 % (11.5-14.5)
[2018-09-28 07:20] LABS: ALANINE AMINOTRANSFERASE 950 U/L (12-78); ALBUMIN 2.2 G/DL (3.4-5.0); ALBUMIN/GLOBULIN RATIO 0.5 (1.1-1.5); ALKALINE PHOSPHATASE 215 IU/L (46-116); ANION GAP 9 (8-16); ASPARTATE AMINO TRANSFERASE 480 U/L (10-37); BILIRUBIN,TOTAL 1.1 MG/DL (0.1-1.0); BLOOD UREA NITROGEN 5 MG/DL (7-18); BUN/CREATININE RATIO 9.3 (6.6-38.0); CALCIUM 8.4 MG/DL (8.5-10.1); CHLORIDE 103 MMOL/L (99-107); CREATININE 0.54 MG/DL (0.40-0.90); GLUCOSE 145 MG/DL (70-104); MAGNESIUM 1.1 MG/DL (1.5-2.4); POTASSIUM 3.6 MMOL/L (3.5-5.1); SODIUM 138 MMOL/L (135-145); TOTAL CARBON DIOXIDE 26.1 MMOL/L (24-32); TOTAL PROTEIN 6.6 G/DL (6.4-8.2); eGFR > 90 ML/MIN
[2018-09-28] MEDS: lactose-reduced food (Ensure Enlive) - 237ml bottle PO SCH ×3 (08:00→18:00)
[2018-09-28] MEDS: K and/or MAG REPLACEMENT MC SCH (08:00)
[2018-09-28] MEDS: lactobacillus rhamnosus 10,000 MMU CELLS/CAPSULE PO SCH ×2 (08:09→20:07)
[2018-09-28] MEDS: ESOMEPRAZOLE 40 MG VIAL IV SCH ×2 (08:09→20:09)
[2018-09-28] MEDS: NUT.TX.IMPAIRED DIGEST FXN (Ensure Clear) 237 ML PO SCH ×3 (08:10→18:00)
--- NOTE | 2018-09-28 09:08 | NUR ---
Patient's blood sugar this am was 112mg/dl, patient ate very little of her breakfast may be just 5-10%. No correctional dose of humulin indicated and will not give any nutritional dose either.
--- NOTE | 2018-09-28 09:13 | NUR ---
Per Dr. Silverman we will keep both NS and D10 IVF running for now
[2018-09-28] MEDS: insulin regular, human vial - multi-dose SQ SCH (14:06)
--- NOTE | 2018-09-28 14:16 | NUR ---
Got a phone call from GI lab stating that Dr. Vallejo will do an EGD today around 16:30. Patient was already put on NPO prior to receiving this call.
[2018-09-28] MEDS ORDERED: fentaNYL/PF 50MCG/1 ML 2ML syringe ONE ×2 (16:44→17:44)
[2018-09-28] MEDS ORDERED: MIDAZolam 5mg/5ml vial ONE ×2 (16:45→16:47)
[2018-09-28] MEDS ORDERED: LIDOcaine Viscous 15ml cup ONE (16:45)
[2018-09-28] MEDS ORDERED: diphenhydrAMINE 50 mg/ml inj ONE (17:35)
[2018-09-28] MEDS ORDERED: iohexol 300 MG/1 ML 50ml polymer ONE (17:59)
--- NOTE | 2018-09-28 18:30 | NUR ---
Patient in room [facility]. I have received report from JACKY MACHUCA and had the opportunity to ask questions and assume patient care. Addendum: 09/28/18 at 1831 by Bonny Noonan RN Amended: Links added.
--- NOTE | 2018-09-28 18:53 | NUR ---
Problems reprioritized. Patient report given, questions answered & plan of care reviewed with Bonny MACHUCA.
--- NOTE | 2018-09-28 19:05 | NUR ---
received report back from Maddie Benton on the pt.
--- NOTE | 2018-09-28 19:15 | NUR ---
pt arrived FROM [facility] AND AMBULATED BACK TO THE ROOM TOLERATED WELL. NO COMPLAINTS OF PAIN. USED BEDSIDE COMMODE AT THIS TIME.
[2018-09-28] MEDS: mag hydrox/Alum hydrox/simeth 30ml oral suspension PO PRN (20:07)
--- NOTE | 2018-09-28 20:25 | NUR ---
pt up to bedside commode tolerated well.
--- NOTE | 2018-09-28 22:00 | NUR ---
pt resting without s&s of distress. significant other at the bedside.
[2018-09-28] MEDS: insulin glargine (Lantus) pen - multi-dose SQ SCH (22:13)
[2018-09-29] VITALS: BP 97/54
--- NOTE | 2018-09-29 00:17 | NUR ---
resting eyes closed without s&s of distress at this time.
--- NOTE | 2018-09-29 01:30 | NUR ---
awoke c/o pain medicated with oxy ir for this and acccheck done on pt 125
[2018-09-29] MEDS: oxyCODONE IR 5mg (immed. release) tablet PO PRN ×5 (01:39→20:55)
--- NOTE | 2018-09-29 03:30 | NUR ---
pt resting eyes closed without s&s of distress at this time.
--- NOTE | 2018-09-29 04:52 | NUR ---
pt remains resting without changes.
[2018-09-29] MEDS: Dextrose 10%-water IV solution 1,000 ML IV PRN ×2 (05:04→20:55)
[2018-09-29] MEDS: normal saline 1000ml 1,000 ML IV SCH ×2 (05:07→23:26)
[2018-09-29 05:48] LABS: BASOPHILS # (AUTO) 0.1 X10'3 (0-0.2); BASOPHILS % (AUTO) 1.5 % (0-1); EOSINOPHILS # (AUTO) 0.4 X10'3 (0-0.9); EOSINOPHILS % (AUTO) 6.1 % (0-6); HEMATOCRIT 36.6 % (35.0-45.0); HEMOGLOBIN 12.4 g/dl (12.0-16.0); LYMPHOCYTES # (AUTO) 2.1 X10'3 (1.1-4.8); LYMPHOCYTES % (AUTO) 28.7 % (21-51); MEAN CORPUSCULAR HEMOGLOBIN 33.8 PG (27.0-31.0); MEAN CORPUSCULAR HGB CONC 33.8 g/dL (33.0-36.5); MEAN PLATELET VOLUME 9.2 FL (7.4-10.4); MONOCYTES # (AUTO) 0.8 X10'3 (0-0.9); MONOCYTES % (AUTO) 11.8 % (2-12); NEUTROPHILS # (AUTO) 3.7 X10'3 (1.8-7.7); NEUTROPHILS % (AUTO) 51.9 % (42-75); PLATELET COUNT 442 X10'3 (140-440); RED BLOOD COUNT 3.66 X10'6 (4.20-5.60); RED CELL DISTRIBUTION WIDTH 14.9 % (11.5-14.5); WHITE BLOOD COUNT 7.2 X10'3 (4.5-11.0)
--- NOTE | 2018-09-29 06:34 | NUR ---
Problems reprioritized. Patient report given, questions answered & plan of care reviewed with Tangela Markham. Addendum: 09/29/18 at 0634 by Bonny Noonan RN Amended: Links added.
[2018-09-29 07:00] VITALS: BP 91/47
--- NOTE | 2018-09-29 07:01 | NUR ---
Patient in room [facility]. I have received report from Cha MACHUCA and had the opportunity to ask questions and assume patient care.
[2018-09-29] MEDS: lactobacillus rhamnosus 10,000 MMU CELLS/CAPSULE PO SCH ×2 (07:21→19:07)
[2018-09-29] MEDS: ESOMEPRAZOLE 40 MG VIAL IV SCH ×2 (07:22→19:07)
[2018-09-29] MEDS: magnesium 4gm in 100ml NS 100 ML IV PRN ×2 (07:23→16:43)
[2018-09-29] MEDS: lactose-reduced food (Ensure Enlive) - 237ml bottle PO SCH ×3 (08:00→18:00)
[2018-09-29] MEDS: K and/or MAG REPLACEMENT MC SCH (08:00)
[2018-09-29] MEDS: NUT.TX.IMPAIRED DIGEST FXN (Ensure Clear) 237 ML PO SCH ×4 (08:00→18:49)
[2018-09-29 11:00] VITALS: BP 112/60
[2018-09-29] MEDS: magnesium 2GM in 50ml NS 50 ML IV PRN (12:37)
--- NOTE | 2018-09-29 14:59 | NUR ---
RN paged RD: Pt PO 0-25% full liquids now advanced to pureed/thin liquids; has been off TPN for 4 days. Pt snuck cheese and crackers which pushed stent into stomach now s/p stent removal. 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 Pt refusing ensure enlives; refusing PEG for long-term nutrition needs per RN. RN reports pt likes puddings. Ensure pudding TIDWM in addition to regular chocolate/vanilla shake TIDWM added for additional protein/kcal needs. Will need RD f/u for PO diet tolerance given refusal of vast kcals/nutrition needs. Recommendations: 1) Advance to low-residue diet per MD 2) ensure pudding TIDWM; vanilla/chocolate shakes TIDWM 3) MVI/thiamin/folic w/ hx heavy Etoh abuse 4) Pt refuses PEG; would benefit for long-term nutrition needs Addendum: 09/29/18 at [address] Amended: Links added.
--- NOTE | 2018-09-29 15:18 | NUR ---
patient barely eating breakfast or lunch tray. BLood sugars stable. Talked with Dr Jarrett, order given to consult dietary about changing to pureed diet with shakes. Talked with Bailey who is working with patient on diet. MG replaced IV will monitor for repeat draw.
[2018-09-29 18:00] VITALS: BP 119/65
--- NOTE | 2018-09-29 18:05 | NUR ---
mg 2.6. report given to Lacie MACHUCA
--- NOTE | 2018-09-29 18:05 | NUR ---
Patient in room [facility]. I have received report from Tangela MACHUCA and had the opportunity to ask questions and assume patient care.
[2018-09-29] MEDS: insulin regular, human vial - multi-dose SQ SCH (19:14)
[2018-09-29] MEDS: insulin glargine (Lantus) pen - multi-dose SQ SCH (21:01)
[2018-09-30] VITALS: BP 106/63
[2018-09-30] MEDS: LORazepam 2 mg/ml vial IV PRN ×2 (02:45→23:38)
--- NOTE | 2018-09-30 06:23 | NUR ---
Problems reprioritized. Patient report given, questions answered & plan of care reviewed with Lisa RN with Dacia MACHUCA.
[2018-09-30 07:16] VITALS: BP 113/59
[2018-09-30] MEDS: NUT.TX.IMPAIRED DIGEST FXN (Ensure Clear) 237 ML PO SCH ×3 (08:00→15:28)
[2018-09-30] MEDS: K and/or MAG REPLACEMENT MC SCH (08:00)
[2018-09-30] MEDS: lactose-reduced food (Ensure Enlive) - 237ml bottle PO SCH ×3 (08:00→18:00)
[2018-09-30] MEDS: oxyCODONE IR 5mg (immed. release) tablet PO PRN ×3 (08:16→19:55)
[2018-09-30] MEDS: ESOMEPRAZOLE 40 MG VIAL IV SCH ×2 (08:16→19:53)
[2018-09-30] MEDS: lactobacillus rhamnosus 10,000 MMU CELLS/CAPSULE PO SCH ×2 (08:17→19:53)
[2018-09-30] MEDS: normal saline 1000ml 1,000 ML IV SCH (08:28)
--- NOTE | 2018-09-30 08:59 | NUR ---
Pt moved to rm 356A per engineering request d/t repair in 346 is required until later today. Pt aware and agreed to temporary move taking all "valuable" belongings with her. Pt ambulated to 356 and S.O. assisted w/ transferring her belongings to temporary room. Engineering states repair in 346 will be completed this afternoon. Pt instructed that she may return to 346B when completed. Pt agreed to plan.
[2018-09-30 10:23] LABS: BASOPHILS # (AUTO) 0.1 X10'3 (0-0.2); BASOPHILS % (AUTO) 1.8 % (0-1); EOSINOPHILS # (AUTO) 0.4 X10'3 (0-0.9); EOSINOPHILS % (AUTO) 6.2 % (0-6); HEMATOCRIT 35.1 % (35.0-45.0); HEMOGLOBIN 11.6 g/dl (12.0-16.0); LYMPHOCYTES # (AUTO) 1.9 X10'3 (1.1-4.8); MEAN CORPUSCULAR HEMOGLOBIN 33.2 PG (27.0-31.0); MEAN CORPUSCULAR HGB CONC 33.2 g/dL (33.0-36.5); MEAN CORPUSCULAR VOLUME 99.9 FL (78-98); MONOCYTES # (AUTO) 0.7 X10'3 (0-0.9); MONOCYTES % (AUTO) 11.1 % (2-12); NEUTROPHILS # (AUTO) 3.4 X10'3 (1.8-7.7); NEUTROPHILS % (AUTO) 51.9 % (42-75); PLATELET COUNT 427 X10'3 (140-440); RED BLOOD COUNT 3.51 X10'6 (4.20-5.60); WHITE BLOOD COUNT 6.6 X10'3 (4.5-11.0)
[2018-09-30 10:38] LABS: ALANINE AMINOTRANSFERASE 814 U/L (12-78); ALBUMIN 2.3 G/DL (3.4-5.0); ALBUMIN/GLOBULIN RATIO 0.5 (1.1-1.5); ALKALINE PHOSPHATASE 195 IU/L (46-116); ANION GAP 7 (8-16); ASPARTATE AMINO TRANSFERASE 419 U/L (10-37); BILIRUBIN,TOTAL 1.1 MG/DL (0.1-1.0); BLOOD UREA NITROGEN 4 MG/DL (7-18); BUN/CREATININE RATIO 6.9 (6.6-38.0); CALCIUM 8.1 MG/DL (8.5-10.1); CHLORIDE 105 MMOL/L (99-107); CREATININE 0.58 MG/DL (0.40-0.90); POTASSIUM 3.6 MMOL/L (3.5-5.1); SODIUM 137 MMOL/L (135-145); TOTAL CARBON DIOXIDE 25.3 MMOL/L (24-32); TOTAL PROTEIN 6.8 G/DL (6.4-8.2); eGFR > 90 ML/MIN
[2018-09-30 10:41] LABS: GLUCOSE 175 MG/DL (70-104)
[2018-09-30 11:00] VITALS: BP 97/52
[2018-09-30] MEDS: dextrose 5%-1/2 normal saline 1,000 ML IV SCH ×2 (11:56→23:39)
--- NOTE | 2018-09-30 14:10 | NUR ---
F/u: Pt PO ~50% meals so far today. Pt now requesting vanilla ensure enlive TIDWM instead of regular shakes and would like vanilla ensure pudding TIDWM; dietary notified. Prior ONS order still active. Changed to D5 from D10 today per RN. LBM 09/29. Will continue to monitor. RN paged RD: Pt PO 0-25% full liquids now advanced to pureed/thin liquids; has been off TPN for 4 days. Pt snuck cheese and crackers which pushed stent into stomach now s/p stent removal. 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 Pt refusing ensure enlives; refusing PEG for long-term nutrition needs per RN. RN reports pt likes puddings. Ensure pudding TIDWM in addition to regular chocolate/vanilla shake TIDWM added for additional protein/kcal needs. Will need RD f/u for PO diet tolerance given refusal of vast kcals/nutrition needs. Recommendations: 1) Advance to low-residue diet per MD 2) vanilla ensure pudding TIDWM; vanilla ensure enlive TIDWM 3) MVI/thiamin/folic w/ hx heavy Etoh abuse 4) Pt refuses PEG; would benefit for long-term nutrition needs Addendum: 09/30/18 at [address] Amended: Links added.
--- NOTE | 2018-09-30 18:24 | NUR ---
Problems reprioritized. Patient report given, questions answered & plan of care reviewed with Chasity MACHUCA.
--- NOTE | 2018-09-30 18:42 | NUR ---
Patient in room [facility]. I have received report from Dacia/BRIGETTE Gonzalez's and had the opportunity to ask questions and assume patient care. Addendum: 09/30/18 at 1842 by Muna Gregory RN Amended: Links added.
[2018-09-30 20:00] VITALS: BP 110/71
[2018-09-30] MEDS: insulin glargine (Lantus) pen - multi-dose SQ SCH (21:39)
[2018-10-01 00:17] VITALS: BP 93/60
[2018-10-01] MEDS: oxyCODONE IR 5mg (immed. release) tablet PO PRN (03:57)
[2018-10-01 05:04] LABS: BASOPHILS # (AUTO) 0.1 X10'3 (0-0.2); BASOPHILS % (AUTO) 1.4 % (0-1); EOSINOPHILS # (AUTO) 0.5 X10'3 (0-0.9); EOSINOPHILS % (AUTO) 6.7 % (0-6); HEMOGLOBIN 12.3 g/dl (12.0-16.0); LYMPHOCYTES % (AUTO) 37.8 % (21-51); MEAN CORPUSCULAR VOLUME 100.1 FL (78-98); MEAN PLATELET VOLUME 8.9 FL (7.4-10.4); MONOCYTES % (AUTO) 12.1 % (2-12); NEUTROPHILS # (AUTO) 3.3 X10'3 (1.8-7.7); PLATELET COUNT 438 X10'3 (140-440); RED CELL DISTRIBUTION WIDTH 14.7 % (11.5-14.5); WHITE BLOOD COUNT 7.9 X10'3 (4.5-11.0)
[2018-10-01 05:18] LABS: ALANINE AMINOTRANSFERASE 765 U/L (12-78); ALBUMIN 2.5 G/DL (3.4-5.0); ALBUMIN/GLOBULIN RATIO 0.5 (1.1-1.5); ALKALINE PHOSPHATASE 194 IU/L (46-116); ANION GAP 5 (8-16); ASPARTATE AMINO TRANSFERASE 329 U/L (10-37); BLOOD UREA NITROGEN 5 MG/DL (7-18); BUN/CREATININE RATIO 7.9 (6.6-38.0); CALCIUM 8.4 MG/DL (8.5-10.1); CHLORIDE 103 MMOL/L (99-107); CREATININE 0.63 MG/DL (0.40-0.90); MAGNESIUM 1.3 MG/DL (1.5-2.4); POTASSIUM 3.4 MMOL/L (3.5-5.1); SODIUM 138 MMOL/L (135-145); TOTAL CARBON DIOXIDE 30.2 MMOL/L (24-32); TOTAL PROTEIN 7.3 G/DL (6.4-8.2); eGFR > 90 ML/MIN
[2018-10-01 05:21] LABS: GLUCOSE 132 MG/DL (70-104)
--- NOTE | 2018-10-01 06:15 | NUR ---
Patient in room [facility]. I have received report from Chasity Shirley RN and had the opportunity to ask questions and assume patient care.
--- NOTE | 2018-10-01 06:15 | NUR ---
Problems reprioritized. Patient report given, questions answered & plan of care reviewed with BRIGETTE Rivera.
[2018-10-01 07:00] VITALS: BP 97/54
[2018-10-01] MEDS: K and/or MAG REPLACEMENT MC SCH (08:00)
[2018-10-01] MEDS: NUT.TX.IMPAIRED DIGEST FXN (Ensure Clear) 237 ML PO SCH ×3 (08:00→18:00)
[2018-10-01] MEDS: ESOMEPRAZOLE 40 MG VIAL IV SCH (08:27)
[2018-10-01] MEDS: lactobacillus rhamnosus 10,000 MMU CELLS/CAPSULE PO SCH ×2 (08:27→19:03)
[2018-10-01] MEDS: lactose-reduced food (Ensure Enlive) - 237ml bottle PO SCH ×3 (08:28→18:48)
[2018-10-01] MEDS: POTASSIUM BICARB 20meq eff tab 20 MEQ TABLET.EFF PO PRN ×3 (08:29→23:20)
[2018-10-01] MEDS: magnesium 4gm in 100ml NS 100 ML IV PRN (08:38)
[2018-10-01 11:00] VITALS: BP 97/58
[2018-10-01] MEDS ORDERED: LORazepam 0.5 MG tablet PO PRN (15:35)
--- NOTE | 2018-10-01 15:57 | NUR ---
Patient ambulated from his room and the hallway 2 laps
[2018-10-01] MEDS: sertraline 50mg tablet PO SCH (17:31)
--- NOTE | 2018-10-01 18:15 | NUR ---
Patient in room [facility]. I have received report from BRIGETTE Rivera and had the opportunity to ask questions and assume patient care.
[2018-10-01] MEDS: mag hydrox/Alum hydrox/simeth 30ml oral suspension PO PRN (18:17)
[2018-10-01 18:30] VITALS: BP 121/69
--- NOTE | 2018-10-01 18:30 | NUR ---
Problems reprioritized. Patient report given, questions answered & plan of care reviewed with Osmany MACHUCA.
[2018-10-01] MEDS: HYDROcodone/acetaminophen 5mg/325mg tablet PO PRN (18:43)
[2018-10-01] MEDS: pantoprazole 40mg Tablet.DR PO SCH (19:03)
[2018-10-01] MEDS: magnesium 2GM in 50ml NS 50 ML IV PRN (19:03)
[2018-10-01] MEDS: insulin glargine (Lantus) pen - multi-dose SQ SCH (21:00)
[2018-10-01] MEDS: ondansetron/PF 4mg/2ml inj IV PRN (23:54)
[2018-10-02] VITALS: BP 115/70
[2018-10-02] MEDS: HYDROcodone/acetaminophen 5mg/325mg tablet PO PRN ×3 (01:01→15:19)
[2018-10-02 05:28] LABS: ALANINE AMINOTRANSFERASE 615 U/L (12-78); ALBUMIN 2.7 G/DL (3.4-5.0); ALBUMIN/GLOBULIN RATIO 0.5 (1.1-1.5); ALKALINE PHOSPHATASE 192 IU/L (46-116); ANION GAP 6 (8-16); ASPARTATE AMINO TRANSFERASE 174 U/L (10-37); BLOOD UREA NITROGEN 11 MG/DL (7-18); BUN/CREATININE RATIO 18.3 (6.6-38.0); CHLORIDE 104 MMOL/L (99-107); SODIUM 138 MMOL/L (135-145); eGFR > 90 ML/MIN
[2018-10-02 05:42] LABS: BASOPHILS # (AUTO) 0.1 X10'3 (0-0.2); BASOPHILS % (AUTO) 0.8 % (0-1); EOSINOPHILS # (AUTO) 0.4 X10'3 (0-0.9); EOSINOPHILS % (AUTO) 4.5 % (0-6); HEMATOCRIT 37.1 % (35.0-45.0); HEMOGLOBIN 12.7 g/dl (12.0-16.0); LYMPHOCYTES # (AUTO) 2.7 X10'3 (1.1-4.8); MEAN CORPUSCULAR HGB CONC 34.2 g/dL (33.0-36.5); MEAN CORPUSCULAR VOLUME 99.4 FL (78-98); MEAN PLATELET VOLUME 8.9 FL (7.4-10.4); MONOCYTES % (AUTO) 11.4 % (2-12); NEUTROPHILS # (AUTO) 4.4 X10'3 (1.8-7.7); NEUTROPHILS % (AUTO) 51.3 % (42-75); PLATELET COUNT 414 X10'3 (140-440); RED BLOOD COUNT 3.73 X10'6 (4.20-5.60); RED CELL DISTRIBUTION WIDTH 14.8 % (11.5-14.5); WHITE BLOOD COUNT 8.5 X10'3 (4.5-11.0)
[2018-10-02 06:03] LABS: GLUCOSE 99 MG/DL (70-104); POTASSIUM 4.3 MMOL/L (3.5-5.1)
--- NOTE | 2018-10-02 06:07 | NUR ---
Problems reprioritized. Patient report given, questions answered & plan of care reviewed with BRIGETTE Boudreaux.
--- NOTE | 2018-10-02 06:15 | NUR ---
Patient in room [facility]. I have received report from BRIGETTE Ceron and had the opportunity to ask questions and assume patient care.
[2018-10-02 07:23] VITALS: BP 86/45
[2018-10-02 07:24] VITALS: BP 102/64
[2018-10-02] MEDS: NUT.TX.IMPAIRED DIGEST FXN (Ensure Clear) 237 ML PO SCH ×2 (07:57→13:00)
[2018-10-02] MEDS: lactose-reduced food (Ensure Enlive) - 237ml bottle PO SCH ×2 (07:58→13:00)
[2018-10-02] MEDS: K and/or MAG REPLACEMENT MC SCH (07:58)
[2018-10-02] MEDS: sertraline 50mg tablet PO SCH (08:38)
[2018-10-02] MEDS: lactobacillus rhamnosus 10,000 MMU CELLS/CAPSULE PO SCH (08:38)
[2018-10-02] MEDS: pantoprazole 40mg Tablet.DR PO SCH (08:38)
[2018-10-02 12:01] VITALS: BP 90/41
[2018-10-02] MEDS ORDERED: BARIUM SULFATE 340 ML SUSP.RECON***PROCEDURE AREA ONLY**DONT ENTER PO ONE (13:00)
[2018-10-02] MEDS ORDERED: THIA100T66 PO (14:55)
[2018-10-02] MEDS ORDERED: FOLI1TAB16 PO (14:55)
[2018-10-02] MEDS ORDERED: SERT100T10 PO (14:55)
[2018-10-02] MEDS ORDERED: PANT40TA4 PO (14:55)
[2018-10-02] MEDS ORDERED: MULT-1179 PO (14:55)
[2018-10-02] MEDS ORDERED: MAGN64TA10 PO (14:55)
[2018-10-02] MEDS ORDERED: magnesium Cl slow-release 64mg tablet PO SCH ×2 (15:10→20:00)
[2018-10-02] MEDS ORDERED: magnesium Cl slow-release 64mg tablet PO ONE (15:10)
--- NOTE | 2018-10-02 16:30 | NUR ---
Patient discharged. PIV in the left FA and extended in the JUAN ANTONIO removed: both cath tips intact. Education given to patient and and both verbalized understanding. Patient is to follow up with PCP and Dr. Vallejo if needed. Patient was supplied with Dr. Vallejo's contact information. Patient was given 10 dollars for [employer] tickets to get to [place] where they will be staying. Mauri from [facility] dropped off her new medications; no narcotics were ordered or given. Patient and left before being escorted out even though I told her that we would walk her down after Mauri from [facility] dropped off her medications.
== END 2018-10-02 16:38 | disposition home or self-care (01) | DRG 243 ==
LOC: ER 18:16 → CMPBEDREQ 09-10 00:31 → SUR 3N 09-10 00:42 → CMPBEDREQ 09-10 01:37 → SUR 3N 09-13 17:59
PROVIDERS: ADMIT Family Medicine; ATTEND Family Medicine
PROC: BW211ZZ Computerized Tomography (CT Scan) of Abdomen and Pelvis using Low Osmolar Contrast (ICD-10-PCS; principal; 2018-09-09)
PROC: BD11YZZ Fluoroscopy of Esophagus using Other Contrast (ICD-10-PCS; 2018-09-11)
PROC: 0DB98ZX Excision of Duodenum, Via Natural or Artificial Opening Endoscopic, Diagnostic (ICD-10-PCS; 2018-09-11)
PROC: 0DB68ZX Excision of Stomach, Via Natural or Artificial Opening Endoscopic, Diagnostic (ICD-10-PCS; 2018-09-11)
PROC: 0DB58ZX Excision of Esophagus, Via Natural or Artificial Opening Endoscopic, Diagnostic (ICD-10-PCS; 2018-09-11)
PROC: 0D758ZZ Dilation of Esophagus, Via Natural or Artificial Opening Endoscopic (ICD-10-PCS; 2018-09-11)
PROC: 0D748ZZ Dilation of Esophagogastric Junction, Via Natural or Artificial Opening Endoscopic (ICD-10-PCS; 2018-09-11)
PROC: 0DC38ZZ Extirpation of Matter from Lower Esophagus, Via Natural or Artificial Opening Endoscopic (ICD-10-PCS; 2018-09-11)
PROC: 0D758DZ Dilation of Esophagus with Intraluminal Device, Via Natural or Artificial Opening Endoscopic (ICD-10-PCS; 2018-09-22)
PROC: 0D738ZZ Dilation of Lower Esophagus, Via Natural or Artificial Opening Endoscopic (ICD-10-PCS; 2018-09-28)
PROC: 0DP58DZ Removal of Intraluminal Device from Esophagus, Via Natural or Artificial Opening Endoscopic (ICD-10-PCS; 2018-09-28)
DX: K22.2 Esophageal obstruction (principal); E43 Unspecified severe protein-calorie malnutrition; I95.9 Hypotension, unspecified; T18.2XXA Foreign body in stomach, initial encounter; J98.2 Interstitial emphysema; K70.10 Alcoholic hepatitis without ascites; B16.9 Acute hepatitis B without delta-agent and without hepatic coma; E83.42 Hypomagnesemia; S27.813A Laceration of esophagus (thoracic part), initial encounter; K76.0 Fatty (change of) liver, not elsewhere classified; B18.1 Chronic viral hepatitis B without delta-agent; B18.2 Chronic viral hepatitis C; D64.9 Anemia, unspecified; E87.6 Hypokalemia; F10.20 Alcohol dependence, uncomplicated; F32.9 Major depressive disorder, single episode, unspecified; F41.9 Anxiety disorder, unspecified; T18.128A Food in esophagus causing other injury, initial encounter; F12.90 Cannabis use, unspecified, uncomplicated; S27.818A Other injury of esophagus (thoracic part), initial encounter; F14.90 Cocaine use, unspecified, uncomplicated; R13.14 Dysphagia, pharyngoesophageal phase; G89.29 Other chronic pain; M54.9 Dorsalgia, unspecified; X58.XXXA Exposure to other specified factors, initial encounter; K20.9 Esophagitis, unspecified; K29.20 Alcoholic gastritis without bleeding; Z59.0 Homelessness; Z83.3 Family history of diabetes mellitus; Z91.19 Patient's noncompliance with other medical treatment and regimen; Z68.22 Body mass index [BMI] 22.0-22.9, adult; Z79.899 Other long term (current) drug therapy; Y93.89 Activity, other specified; Y92.89 Other specified places as the place of occurrence of the external cause; Y99.8 Other external cause status; Z71.41 Alcohol abuse counseling and surveillance of alcoholic; Z87.11 Personal history of peptic ulcer disease; Z46.59 Encounter for fitting and adjustment of other gastrointestinal appliance and device
CPT/HCPCS: 36415; 36569; 43239; 43247; 43248; 43249; 43255; 43266; 71046; 71250; 71260; 74018; 74160; 74176; 74220; 76700; 76937; 80053; 80074; 80305; 80320; 80329; 81001; 82103; 82948; 83036; 83690; 83735; 84100; 84134; 84478; 84560; 85025; 85610; 86703; 87081; 93005; 96361; 96365; 96366; 96368; 96375; 96376; 99152; 99153; 99285; A4620; C1726; C1769; G0378; J0780; J1200; J1650; J1815; J2060; J2250; J2270; J2405; J2543; J2765; J3010; J3411; J3475; J3480; J3490; J7030; J7040; J7042; J7060; Q9963; Q9967

== ENCOUNTER 2018-10-11 18:20 | Emergency (ER) | payer MEDICAID ==
[~2018-10-11 18:20] MED LIST changes: -CYCL-1 PO; -FLUT16SP2 BOTHNARES; -HYDR-4353 PO; -HYDR-4383 PO; -IBUP-1985 PO; +MAGN64TA10 PO; -NAPR-1144 PO; -NAPR-1166 PO; -ONDA4TAB6 PO; +PANT40TA4 PO; +SERT100T10 PO; -SULF5DRO EACHEYE; -THI100T PO; +THIA100T66 PO
== END 2018-10-11 19:30 | disposition left against medical advice (07) ==
LOC: ER 18:21
DX: E16.2 Hypoglycemia, unspecified (principal); Z53.21 Procedure and treatment not carried out due to patient leaving prior to being seen by health care provider

== ENCOUNTER 2018-10-11 21:05 | Emergency (ER) | payer MEDICAID | END 2018-10-11 22:30 | disposition left against medical advice (07) | LOC: ER 21:06 | DX: Z00.00 Encounter for general adult medical examination without abnormal findings (principal); Z53.21 Procedure and treatment not carried out due to patient leaving prior to being seen by health care provider ==

== ENCOUNTER 2018-12-14 21:14 | Emergency (ER) | payer MEDICAID ==
[~2018-12-14] VITALS: Ht 167.6 cm; Wt 63.0 kg
[2018-12-14] MEDS ORDERED: ibuprofen 200mg tablet PO ONE (21:55)
[2018-12-14 22:31] VITALS: BP 135/55
== END 2018-12-14 22:32 | disposition home or self-care (01) ==
LOC: ER 21:15
DX: M25.531 Pain in right wrist (principal); G89.29 Other chronic pain; Z79.899 Other long term (current) drug therapy; F17.200 Nicotine dependence, unspecified, uncomplicated; Z59.0 Homelessness; Z56.0 Unemployment, unspecified; Z87.440 Personal history of urinary (tract) infections; Z86.19 Personal history of other infectious and parasitic diseases; Z98.890 Other specified postprocedural states; W05.0XXA Fall from non-moving wheelchair, initial encounter; Y93.89 Activity, other specified; Y92.89 Other specified places as the place of occurrence of the external cause; Y99.8 Other external cause status
CPT/HCPCS: 29125; 73110; 99283

== ENCOUNTER 2019-01-29 18:30 | Emergency (ER) | payer MEDICAID ==
[~2019-01-29] VITALS: Ht 167.6 cm; Wt 57.5 kg
[2019-01-29] MEDS ORDERED: ibuprofen tablet 400 MG TABLET PO ONE (20:40)
[2019-01-29] MEDS ORDERED: IBUP-1984 PO (20:43)
[2019-01-29 20:56] VITALS: BP 127/78
== END 2019-01-29 20:59 | disposition home or self-care (01) ==
LOC: ER 18:31
DX: M25.531 Pain in right wrist (principal); G89.29 Other chronic pain; Z86.19 Personal history of other infectious and parasitic diseases; Z98.890 Other specified postprocedural states; Z79.899 Other long term (current) drug therapy
CPT/HCPCS: 29125; 73110; 73130; 99284